=== PATIENT | male | born 1950 | race Caucasian/White ===

== ENCOUNTER 2019-10-16 23:29 | Emergency (ER) | payer MEDICARE ==
[~2019-10-16] VITALS: Ht 172.7 cm; Wt 95.3 kg
--- OUTSIDE RECORDS SUMMARY | ~2019-10-16 | XMS | Encounter Summary ---
Demographics + + + | Address | [address] | | | [place] [address] | + + + | Home Phone | | + + + | Preferred Language | Unknown | + + + | Marital Status | | + + + | Yazdanism Affiliation | Unknown | + + + | Race | Unknown | + + + | Ethnic Group | Unknown | + + + Author + + + | Author | [facility] | | | and [place] | + + + | Organization | [facility] | | | and [place] | + + + | Address | Unknown | + + + | Phone | Unavailable | + + + Support + + + + + | Name | Relationship | Address | Phone | + + + + + | Chula Roe | ECON | [address] | | | | | [place] | | | | | [address] | | + + + + + Care Team Providers + +------+ + | Care Sergeant Of Officers Name | Role | Phone | + +------+ + | Edin Gavin MD | PCP | | + +------+ + Encounter Details +--------+ + + + + | Date | Type | Department | Care Team | Description | +--------+ + + + + | 03/15/ | Anesthesia | [facility] | Jr Meza | | | 2019 | Event | [facility] | Jimbo, DO [address] | | | | | [address] [place] | [address] | | | | | [place] [address] | [place] [address] | | | | | [phone] | [phone] | | | | | | | | +--------+ + + + + Anesthesia Record + + + + + | Procedure Name | Responsible | Anesthesia Start | Anesthesia Stop Time | | | Anesthesiologist | Time | | + + + + + | [facility] | | | | | [facility] | | | | + + + + + + + | No events on file. | + + +------+ | Meds | +------+ + + + No medications | on file. | + + + + + | No agents on file. | + + + + | No blood administrations on file. | + + + + | No LDAs on file. | + + documented in this encounter Social History + +-------+ +--------+------+ | Tobacco Use | Types | Packs/Day | Years | Date | | | | | Used | | + +-------+ +--------+------+ | Never Smoker | | | | | + +-------+ +--------+------+ + +------+---+---+ | Smokeless Tobacco: | Chew | | | | Current User | | | | + +------+---+---+ + + | Comments: 1 can per month | + + + + +---------+ + | Alcohol Use | Drinks/Week | oz/Week | Comments | + + +---------+ + | Yes | | | 5/week | + + +---------+ + + + + | Sex Assigned at | Date Recorded | | | | + + + | Not on file | | + + + + + + + | Job Start Date | Occupation | Industry | + + + + | Not on file | Not on file | Not on file | + + + + + + + + | Travel History | Travel Start | Travel End | + + + + + + | No recent travel history available. | + + documented as of this encounter Plan of Treatment Not on filedocumented as of this encounter Visit Diagnoses Not on filedocumented in this encounter"
--- OUTSIDE RECORDS SUMMARY | ~2019-10-16 | XMS | Encounter Summary ---
Demographics + + + | Address | [address] | | | [place] [address] | + + + | Home Phone | | + + + | Preferred Language | Unknown | + + + | Marital Status | | + + + | Cheondoism Affiliation | Unknown | + + + | Race | Unknown | + + + | Ethnic Group | Unknown | + + + Author + + + | Author | [facility] | | | and [place] | + + + | Organization | [facility] | | | and [place] | + + + | Address | Unknown | + + + | Phone | Unavailable | + + + Support + + + + + | Name | Relationship | Address | Phone | + + + + + | Chula Roe | ECON | [address] | | | | | [place] | | | | | [address] | | + + + + + Care Team Providers + +------+ + | Care Lactation Specialist Name | Role | Phone | + +------+ + | Edin Gavin MD | PCP | | + +------+ + Encounter Details +--------+ + + + + | Date | Type | Department | Care Team | Description | +--------+ + + + + | 02/22/ | Hospital | [facility] | Eran Smith MD | | | 2019 | Encounter | MED CTR NUCLEAR | [address] | | | | | MEDICINE [address] | [place], [place] | | | | | [place], | [address] | | | | | [place] [address] | [phone] | | | | | [phone] | | | +--------+ + + + + Social History + +-------+ +--------+------+ | Tobacco Use | Types | Packs/Day | Years | Date | | | | | Used | | + +-------+ +--------+------+ | Never Assessed | | | | | + +-------+ +--------+------+ + + + | Sex Assigned at [...] Not on filedocumented as of this encounter Procedures + +--------+ + + + | Procedure Name | Priori | Date/Time | Associated Diagnosis | Comments | | | ty | | | | + +--------+ + + + | NM NUCLEAR STRESS | Routin | 02/22/2019 | Bundle branch | Results for this | | TEST (PHARMACOLOGIC | e | 10:47 AM | block, right | procedure are in the | | - VASODILATOR) | | PDT | Abnormal EKG | results section. | + +--------+ + + + documented in this encounter Visit Diagnoses Not on filedocumented in this encounter Administered Medications + +--------+ + +------+------+ | Medication Order | MAR | Action | Dose | Rate | Site | | | Action | Date | | | | + +--------+ + +------+------+ | technetium TC-99M sestamibi | Given | 02/23/20 | 33.6 | | | | (CARDIOLITE) injection 33.6 | | 19 10:46 | millicur | | | | millicurie 33.6 millicurie, | | AM PDT | ies | | | | Intravenous, ONCE NICK, Other, | | | | | | | Starting [facility] 02/22/19 at 1046, For | | | | | | | 1 dose, Nuclear Medicine | | | | | | + +--------+ + +------+------+ +---+---+ | | | +---+---+ documented in this encounter"
--- OUTSIDE RECORDS SUMMARY | ~2019-10-16 | XMS | Encounter Summary ---
Demographics + + + | Address | [address] | | | [place] [address] | + + + | Home Phone | | + + + | Preferred Language | Unknown | + + + | Marital Status | | + + + | Jainism Affiliation | Unknown | + + + | Race | Unknown | + + + | Ethnic Group | Unknown | + + + Author + + + | Author | [facility] | | | and [place] | + + + | Organization | [facility] | | | and [place] | + + + | Address | Unknown | + + + | Phone | Unavailable | + + + Support + + + + + | Name | Relationship | Address | Phone | + + + + + | Chula Roe | ECON | [address] | | | | | [place] | | | | | [address] | | + + + + + Care Team Providers + +------+ + | Care Brokerage Branch Manager Name | Role | Phone | + +------+ + | Edin Gavin MD | PCP | | + +------+ + Reason for Visit Auth/Cert +--------+--------+ + + + + | Status | Reason | Specialty | Diagnoses / | Referred By | Referred To | | | | | Procedures | Contact | Contact | +--------+--------+ + + + + | | | | Diagnoses | | | | | | | Primary | | | | | | | osteoarthrit | | | | | | | is of right | | | | | | | hip Primary | | | | | | | | | | | | | | osteoarthrit | | | | | | | is of right | | | | | | | hip [M16.11] | | | | | | | Procedures | | | | | | | [place] TOTAL | | | | | | | HIP | | | | | | | ARTHROPLASTY | | | | | | | Right | | | | | | | total hip | | | | | | | arthroplasty | | | +--------+--------+ + + + + Encounter Details +--------+ + + + + | Date | Type | Department | Care Team | Description | +--------+ + + + + | 03/14/ | Anesthesia | [facility] | Josiah Mckenzie, | | | 2019 | Event | MED CTR OR [facility] OP | MD [address] | | | | | [address] | [place] | | | | | [place] | [address] | | | | | [address] | | | | | | [phone] | [facility] | | | | | | MD Antonio [address] | | | | | | [address] [place] | | | | | | [place] [address] | | | | | | [phone] | | | | | | | | +--------+ + + + + Anesthesia Record + + + + + | Procedure Name | Responsible | Anesthesia Start | Anesthesia Stop Time | | | Anesthesiologist | Time | | + + + + + | Right total hip | Josiah Mckenzie MD | 03/14/19 1434 | 03/14/19 1634 | | arthroplasty (Right | | | | | Hip) | | | | + + + + + +----+---+ + + | Da | T | Event | Comment | | te | i | | | | | m | | | | | e | | | +----+---+ + + | 06 | 1 | | | | /1 | 4 | | | | 2/ | 2 | | | | 20 | 1 | | | | 19 | | | | +----+---+ + + | | 1 | An Checkout | Pre-use anesthesia machine/equipment checkout. | | | 4 | | | | | 2 | | | | | 1 | | | +----+---+ + + | | 1 | An Start | Reassessment prior to anesthesia induction/procedure. | | | 4 | | | | | 3 | | | | | 4 | | | +----+---+ + + | | 1 | An Start | | | | 4 | Data | | | | 3 | | | | | 4 | | | +----+---+ + + | | 1 | Epi/spinal | | | | 4 | Stop | | | | 4 | | | | | 1 | | | +----+---+ + + | | 1 | Preoxygenat | | | | 4 | ed | | | | 4 | | | | | 2 | | | +----+---+ + + | | 1 | An | | | | 4 | Induction | | | | 4 | | | | | 3 | | | +----+---+ + + | | 1 | An | | | | 4 | Intubation | | | | 4 | | | | | 5 | | | +----+---+ + + | | 1 | AN Bite | | | | 4 | Block | | | | 4 | | | | | 6 | | | +----+---+ + + | | 1 | Anesthesia | | | | 4 | Ready | | | | 4 | | | | | 6 | | | +----+---+ + + | | 1 | Antibiotic | | | | 4 | Given | | | | 5 | | | | | 3 | | | +----+---+ + + | | 1 | First | | | | 5 | Inc/Proc St | | | | 0 | | | | | 3 | | | +----+---+ + + | | 1 | Pre-Procedu | | | | 5 | ral Timeout | | | | 0 | Completed | | | | 3 | | | +----+---+ + + | | 1 | [place] | | | | 5 | 43-degrees | | | | 0 | | | | | 3 | | | +----+---+ + + | | 1 | Quick Note | HR from EKG inaccurate. Counting t-wave as QRS spike. Accurate HR | | | 5 | | from the SpO2. | | | 0 | | | | | 9 | | | +----+---+ + + | | 1 | [place] off | | | | 6 | | | | | 1 | | | | | 7 | | | +----+---+ + + | | 1 | Oropharynx | | | | 6 | Suctioned | | | | 2 | | | | | 6 | | | +----+---+ + + | | 1 | Extubation/ | | | | 6 | Airway LDA | | | | 2 | Removal | | | | 7 | | | +----+---+ + + | | 1 | an stop | | | | 6 | data | | | | 2 | | | | | 7 | | | +----+---+ + + | | 1 | An Stop | Patient handed off to recovery nurse. | | | 3 | | | | | 4 | | | +----+---+ + + +------+ | Meds | +------+ + + + | Name | Total | + + + | fentaNYL | 100 mcg | + + + | lidocaine 2% | 100 mg | + + + | propofol | 100 mg | + + + | rocuronium | 50 mg | + + + | ePHEDrine (AKOVAZ) injection 50 | 20 mg | | mg/mL | | + + + | ondansetron | 4 mg | + + + | dexamethasone (PF) injection 10 | 10 mg | | mg/mL | | + + + | ceFAZolin (ANCEF, KEFZOL) 100 | 2 g | | mg/mL IV syringe 2 g | | + + + | morphine (Intrathecal) | 150 mcg | + + + | bupivacaine 0.75% (Intrathecal) | 1 mL | + + + | neostigmine | 4 mg | + + + | glycopyrrolate (ROBINUL) | 0.6 mg | | injection (5 mL vial) | | + + + | tranexamic acid | 2,000 mg | + + + | lactated ringers (LR) infusion | 1,500 mL | + + + + + | Name | + + | N2O Flow Rate (L/Min) | + + | O2 Flow Rate (L/Min) | + + | Insp O2 | + + | Exp SEV | + + | Air Flow Rate (L/Min) | + + + + | No blood administrations on file. | + + +--------+ + + + | Type | Details | Placement | Removal | +--------+ + + + | Airway | Placement Date: 03/14/19; | 03/14/19 1445 by | 03/14/19 1627 by | | | Placement Time: 1445 (created via | Jr Choi | Josiah Mckenzie MD | | | procedure documentation); Mask | Ramboirr, DO | | | | Ventilation: EZ w/OA; Airway | | | | | Grade: 2b; External Maneuvers: | | | | | BURP; Successful Technique: Mac; | | | | | Laryngoscope Blade Size: 3; | | | | | Attempts: 1; Airway Type: | | | | | endotracheal; Size: 6.5; Airway | | | | | Tube Secured At: 23; Trauma: | | | | | none; Placement Check: exhaled | | | | | CO2 detection device, bilateral | | | | | chest rise, breath sounds equal | | | | | bilaterally; Removal Date: | | | | | 03/14/19; Removal Time: 1627 | | | +--------+ + + + | Urethr | 03/14/19; 1450; indicated due to | 03/14/19 1450 by | 03/15/19 0800 by | | al | specific surgical procedure; All | Patricia Salmeron RN | [facility] | | [place] | elements; All elements; All | | BARBY Vaughan | | er | elements; indwelling double lumen | | | | | catheter; 100% silicone; 16; | | | | | Urethral resistance; 1; 10; | | | | | drainage bag to dependent | | | | | drainage; urethral catheter | | | | | removed, per protocol/policy; | | | | | 03/15/19; 0800 | | | +--------+ + + + | Wound | 03/14/19; 1509; Incision; Right; | 03/14/19 1509 by | 03/15/19 1425 by | | | hip; Healing; 03/15/19; 1425 | Patricia Salmeron RN | [facility] | | | | | [facility] | +--------+ + + + | Periph | 03/14/19 (present on arrival to | 03/14/19 1657 by | 03/15/19 1425 by | | eral | PACU); 1657; Right; Anterior | Jim Sue RN | [facility] | | IV | (palmar); Forearm; | | BARBY Vaughan | | | alhv-iza-fpwsep catheter system; | | | | | 18 gauge, 1 1/2 in length; | | | | | removed inadvertently, no longer | | | | | indicated; 03/15/19; 1425 | | | +--------+ + + + documented in this encounter Social [...] | + +--------+ + + + | ANE EPIDURAL NOTE | Routin | 03/14/2019 | | Results for this | | | e | 2:59 PM | | procedure are in the | | | | PDT | | results section. | + +--------+ + + + | ANE AIRWAY NOTE | Routin | 03/14/2019 | | Results for this | | | e | 2:57 PM | | procedure are in the | | | | PDT | | results section. | + +--------+ + + + documented in this encounter Results Neuraxial (03/14/2019 2:59 PM PDT) + + + | Narrative | Performed At | + + + | Jr Meza DO 03/14/2019 15:00 Neuraxial Procedure | | | Note 03/14/2019 14:50 Procedure: single-shot spinal anesthesia | | | Provider requested procedure: Gryler Indication: postoperative | | | analgesia Preprocedure check: patient identified, procedure and | | | rescue equipment checked, risks/benefits discussed, preevaluation | | | including airway assessment complete, consent obtained, timeout | | | performed, monitors applied and reassessment prior to procedure | | | Patient position: sitting Preparation: chlorhexidine/isopropyl | | | alcohol, Introducer used: yes Procedure level: L3-4 Approach: | | | midline Needle: pencil-point LDA Gauge Size: 24g. Needle length: | | | 4.69 in Medication administered through: needle Negative findings: | | | no blood aspirated and no paresthesia Positive findings: CSF | | | aspirated Attempts: 1 Ease of procedure: easy Performing provider: | | | Jr Meza DO Please see anesthesia record or | | | flowsheet for vital sign documentation and see anesthesia record or | | | MAR for additional medication documentation. | | + + + + + | Procedure Note | + + | Jr Meza DO - 03/14/2019 2:59 PM PDT Neuraxial Procedure Note03/14/2019 | | 14:50Procedure: single-shot spinal anesthesiaProvider requested procedure: | | GrylerIndication: postoperative analgesiaPreprocedure check: patient identified, | | procedure and rescue equipment checked, risks/benefits discussed, preevaluation | | including airway assessment complete, consent obtained, timeout performed, monitors | | applied and reassessment prior to procedurePatient position: sittingPreparation: | | chlorhexidine/isopropyl alcohol, Introducer used: yesProcedure level: L3-4Approach: | | midlineNeedle: pencil-pointLDA Gauge Size: 24g.Needle length: 4.69 inMedication | | administered through: needleNegative findings: no blood aspirated and no | | paresthesiaPositive findings: CSF aspiratedAttempts: 1Ease of procedure: easyPerforming | | provider: Grayson Coker see anesthesia record or flowsheet for vital | | sign documentation and see anesthesia record or MAR for additional medication | | documentation. | |LDA Gauge Size: 24g. | |Needle length: 4.69 in | |Medication administered through: needle | |Negative findings: no blood aspirated and no paresthesia | |Positive findings: CSF aspirated | |Attempts: 1 | |Ease of procedure: easy | |Performing provider: rJ Meza DO | | | | | | | | | |Please see anesthesia record or flowsheet for vital sign documentation and see anesthesia r ecord or MAR for additional medication documentation. | + + Airway (03/14/2019 2:57 PM PDT) + + + | Narrative | Performed At | + + + | Jr Meza DO 03/14/2019 14:59 Anesthesia Airway | | | Placement 03/14/2019 14:45 Preprocedure check: patient identified, | | | suction, oxygen, airway equipment checked, airway assessed and | | | patient reassessment prior to induction Rapid Sequence Induction: no | | | Mask ventilation: easy with oral airway External maneuver: BURP | | | Successful technique: Mac Laryngoscope blade size: 3 Airway | | | grade: 2b (Only posterior extremity of glottis seen or only | | | arytenoid cartilages) Attempts: 1 Airway type: endotracheal Size: | | | 6.5 Cuffed: cuffed Route, reference point: right side of mouth Tube | | | depth: 23 cm Tube secured with: adhesive tape Trauma: none Tube | | | placement verification: bilateral chest rise, equal bilateral breath | | | sounds and carbon dioxide detection Performing provider: Jr | | | Jimbo Meza DO Please see intraoperative grid for any | | | additional medication documentation. | | + + + + + | Procedure Note | + + | Jr Meza DO - 03/14/2019 2:57 PM PDT Anesthesia Airway | | Placement03/14/2019 14:45Preprocedure check: patient identified, suction, oxygen, airway | | equipment checked, airway assessed and patient reassessment prior to inductionRapid | | Sequence Induction: noMask ventilation: easy with oral airwayExternal maneuver: | | BURPSuccessful technique: MacLaryngoscope blade size: 3 Airway grade: 2b (Only | | posterior extremity of glottis seen or only arytenoid cartilages)Attempts: 1Airway type: | | endotrachealSize: 6.5Cuffed: cuffedRoute, reference point: right side of mouthTube | | depth: 23 cmTube secured with: adhesive tapeTrauma: noneTube placement verification: | | bilateral chest rise, equal bilateral breath sounds and carbon dioxide | | detectionPerforming provider: Grayson Coker see intraoperative grid for | | any additional medication documentation. | |Airway type: endotracheal | |Size: 6.5 | |Cuffed: cuffed | |Route, reference point: right side of mouth | |Tube depth: 23 cm | |Tube secured with: adhesive tape | |Trauma: none | |Tube placement verification: bilateral chest rise, equal bilateral breath sounds and carbon dioxide detection | |Performing provider: Jr Meza DO | | | | | | | |Please see intraoperative grid for any additional medication documentation. | + + documented in this encounter Visit Diagnoses Not on filedocumented in this encounter Administered Medications + +--------+ +------+------+------+ | Medication Order | MAR | Action | Dose | Rate | Site | | | Action | Date | | | | + +--------+ +------+------+------+ | bupivacaine 0.75%-dextrose | Given | 03/14/20 | 1 mL | | | | 8.25% (MARCAINE SPINAL) injection | | 19 2:41 | | | | | INTRATHECAL, PRN, Starting Wed | | PM PDT | | | | | 03/14/19 at 1441, Anesthesia | | | | | | | Intra-op | | | | | | + +--------+ +------+------+------+ +---+---+ | | | +---+---+ + +-------+ +-----+---+---+ | ceFAZolin (ANCEF, KEFZOL) 100 | Given | 03/14/20 | 2 g | | | | mg/mL IV syringe 2 g 2 g, | | 19 2:53 | | | | | Intravenous, Administer over 30 | | PM PDT | | | | | Minutes, Prior to Incision, | | | | | | | Starting 03/14/19 at 1436, For | | | | | | | 1 dose, Pre-op, Indications: | | | | | | | Surgical Prophylaxis | | | | | | + +-------+ +-----+---+---+ +---+---+ | | | +---+---+ + +-------+ +-------+---+---+ | dexamethasone (PF) 10 mg/mL | Given | 03/14/20 | 10 mg | | | | injection Intravenous, PRN, | | 19 2:53 | | | | | Starting 03/14/19 at 1453, | | PM PDT | | | | | Anesthesia Intra-op | | | | | | + +-------+ +-------+---+---+ +---+---+ | | | +---+---+ + +-------+ +-------+---+---+ | ePHEDrine (AKOVAZ) 50 mg/mL | Given | 03/14/20 | 10 mg | | | | injection Intravenous, PRN, | | 19 3:18 | | | | | Starting 03/14/19 at 1458, | | PM PDT | | | | | Anesthesia Intra-op | | | | | | + +-------+ +-------+---+---+ +-------+ +-------+---+---+ | Given | 03/14/20 | 10 mg | | | | | 19 2:58 | | | | | | PM PDT | | | | +-------+ +-------+---+---+ +---+---+ | | | +---+---+ + +-------+ +---------+---+---+ | fentaNYL (PF) injection | Given | 03/14/20 | 100 mcg | | | | Intravenous, PRN, Starting Wed | | 19 2:43 | | | | | 03/14/19 at 1443, Anesthesia | | PM PDT | | | | | Intra-op | | | | | | + +-------+ +---------+---+---+ +---+---+ | | | +---+---+ + +-------+ +--------+---+---+ | glycopyrrolate (LUL) | Given | 03/14/20 | 0.6 mg | | | | injection Intravenous, PRN, | | 19 4:14 | | | | | Starting 03/14/19 at 1614, | | PM PDT | | | | | Anesthesia Intra-op | | | | | | + +-------+ +--------+---+---+ +---+---+ | | | +---+---+ + +-------+ +--------+---+---+ | lidocaine (PF) 2% injection | Given | 03/14/20 | 100 mg | | | | Intravenous, PRN, Starting Tue | | 19 2:43 | | | | | 03/14/19 at 1443, Anesthesia | | PM PDT | | | | | Intra-op | | | | | | + +-------+ +--------+---+---+ +---+---+ | | | +---+---+ + +-------+ +---------+---+---+ | morphine (PF) (DURAMORPH) 0.5 | Given | 03/14/20 | 150 mcg | | | | mg/mL injection INTRATHECAL, | | 19 2:41 | | | | | PRN, Starting 03/14/19 at | | PM PDT | | | | | 1441, Anesthesia Intra-op | | | | | | + +-------+ +---------+---+---+ +---+---+ | | | +---+---+ + +-------+ +------+---+---+ | neostigmine (BLOXIVERZ) 1 mg/mL | Given | 03/14/20 | 4 mg | | | | injection Intravenous, PRN, | | 19 4:14 | | | | | Starting 03/14/19 at 1614, | | PM PDT | | | | | Anesthesia Intra-op | | | | | | + +-------+ +------+---+---+ +---+---+ | | | +---+---+ + +-------+ +------+---+---+ | ondansetron (ZOFRAN) injection | Given | 03/14/20 | 4 mg | | | | Intravenous, PRN, Starting Wed | | 19 4:14 | | | | | 03/14/19 at 1614, Anesthesia | | PM PDT | | | | | Intra-op | | | | | | + +-------+ +------+---+---+ +---+---+ | | | +---+---+ + +-------+ +--------+---+---+ | propofol (DIPRIVAN) injection | Given | 03/14/20 | 100 mg | | | | Intravenous, PRN, Starting Wed | | 19 2:43 | | | | | 03/14/19 at 1443, Anesthesia | | PM PDT | | | | | Intra-op | | | | | | + +-------+ +--------+---+---+ +---+---+ | | | +---+---+ + +-------+ +-------+---+---+ | rocuronium (ZEMURON) injection | Given | 03/14/20 | 50 mg | | | | Intravenous, PRN, Starting Wed | | 19 2:43 | | | | | 03/14/19 at 1443, Anesthesia | | PM PDT | | | | | Intra-op | | | | | | + +-------+ +-------+---+---+ +---+---+ | | | +---+---+ + +-------+ + +---+---+ | tranexamic acid (CYKLOKAPRON) | Given | 03/14/20 | 1,000 mg | | | | injection Intravenous, | | 19 4:17 | | | | | Administer over 15 Minutes, PRN, | | PM PDT | | | | | Starting 03/14/19 at 1617, | | | | | | | Anesthesia Intra-op | | | | | | + +-------+ + +---+---+ +-------+ + +---+---+ | Given | 03/14/20 | 1,000 mg | | | | | 19 2:53 | | | | | | PM PDT | | | | +-------+ + +---+---+ +---+---+ | | | +---+---+ documented in this encounter"
--- OUTSIDE RECORDS SUMMARY | ~2019-10-16 | XMS | Clinical Summary ---
Demographics + + + | Address | [address] | | | [place] [address] | + + + | Home Phone | | + + + | Preferred Language | Unknown | + + + | Marital Status | | + + + | Anabaptist Affiliation | Unknown | + + + | Race | White | + + + | Ethnic Group | Other Race | + + + Author + + + | Author | [facility] Dermatology [facility] | + + + | Organization | [facility] | + + + | Address | Unknown | + + + | Phone | Unavailable | + + + Care Team Providers + +------+ + | Care Senior Media Planner Name | Role | Phone | + +------+ + PCP | Unavailable | + +------+ + Source Comments [facility] is fully live on both [facility] and [facility] In[facility] Allergies Not on File Medications Not on file Active Problems Not on file Social History + +-------+ +--------+------+ | Tobacco [...] recent travel history available. | + + Last Filed Vital Signs Not on file Plan of Treatment Not on file Results Not on filefrom Last 3 Months Insurance + +--------+ +--------+-------+---------+--------+ | Payer | Benefi | Subscriber | Effect | Phone | Address | Type | | | t Plan | ID | zoey | | | | | | / | | Dates | | | | | | Group | | | | | | + +--------+ +--------+-------+---------+--------+ | COMMERCIAL GROUP | COMMER | xxxxxxxxxxx | Effect | | | Indemn | | | CIAL | | zoey | | | ity | | | GROUP | | for | | | | | | | | all | | | | | | | | dates | | | | + +--------+ +--------+-------+---------+--------+ + +--------+ +--------+ + + | Guarantor Name | Accoun | Relation to | Date | Phone | Billing Address | | | t Type | Patient | of | | | | | | | | | | + +--------+ +--------+ + + | Edmar Roe | Person | Self | [birth year] | [address] | | | al/Fam | | 1950 | [phone] | [address] [place] | | | [place] | | | [address] (Home) | [address] | + +--------+ +--------+ + +"
--- OUTSIDE RECORDS SUMMARY | ~2019-10-16 | XMS | Encounter Summary ---
Demographics + + + | Address | [address] | | | [place] [address] | + + + | Home Phone | | + + + | Preferred Language | Unknown | + + + | Marital Status | | + + + | Faith Affiliation | Unknown | + + + | Race | White | + + + | Ethnic Group | Other Race | + + + Author + + + | Author | [facility] | + + + | Organization | [facility] | + + + | Address | Unknown | + + + | Phone | Unavailable | + + + Care Team Providers + +------+ + | Care Cyanide Pot Hardener Name | Role | Phone | + +------+ + PCP | Unavailable | + +------+ + Encounter Details +--------+ + + + + | Date | Type | Department | Care Team | Description | +--------+ + + + + | 09/24/ | Hospital | Dermatopathology | | | | 2013 | Encounter | [address] | | | | | | Mailcode: [id number] | | | | | | [facility] | | | | | | and Healing, | | | | | | Building [address], [address] | | | | | | Floor [place], [place] | | | | | | [address] | | | | | | [phone] | | | +--------+ + + + [...] | + +--------+ + + + | DERM PATHOLOGY | Routin | 12/06/2014 | | Results for this | | | e | | | procedure are in the | | | | | | results section. | + +--------+ + + + | DERM PATHOLOGY | Routin | 09/24/2014 | | Results for this | | | e | | | procedure are in the | | | | | | results section. | + +--------+ + + + documented in this encounter Results DERM PATHOLOGY (12/06/2014) + + + + + + | Component | Value | Ref Range | Performed | Pathologist | | | | | At | Signature | + + + + + + | DERMATOPATH | SOURCE OF SPECIMEN:A Lt. | | [facility] | | | OLOGY(WET | shoulder, excision | | DERMATOPATH | | | MNT) | CLINICAL | | OLOGY | | | | DESCRIPTION:Exc. | | | | | | melanocytic nevus with | | | | | | atypical features; | | | | | | suture proximal tip; | | | | | | margincheck please. | | | | | | GROSS | | | | | | DESCRIPTION:Received in | | | | | | formalin is a specimen | | | | | | labeled Jyothi, | | | | | | Edmar:A: Specimen is | | | | | | labeled "Lt shoulder" | | | | | | and consists of an | | | | | | ellipse of heredia-pinkskin, | | | | | | [id number]. The specimen | | | | | | is oriented by a suture | | | | | | at one apex, which | | | | | | isdesignated as proximal | | | | | | tip. With the suture | | | | | | in the 12:00 position, | | | | | | thespecimen is inked | | | | | | blue from | | | | | | 12:00-3:00-6:00 and | | | | | | black from | | | | | | 6:00-9:00-12:00.The | | | | | | tissue is serially | | | | | | sectioned from 12:00 to | | | | | | 6:00 and | | | | | | submittedrespectively in | | | | | | cassettes A1 | | | | | | | | | | | | A2. MICROSCOPIC | | | | | | DESCRIPTION:There are an | | | | | | increased number of | | | | | | collagen bundles with | | | | | | fibrocytes | | | | | | arrangedparallel to the | | | | | | skin surface with | | | | | | vertically oriented | | | | | | blood vessels. | | | | | | DIAGNOSIS:SCAR. | | | | | | NOTE: There is no | | | | | | evidence of residual | | | | | | nevus in these sections. | | | | | | KPW:12/10/14 | | | | | | My electronic | | | | | | signature indicates that | | | | | | I have personally | | | | | | reviewed alldiagnostic | | | | | | slides, the gross and/or | | | | | | microscopic portion of | | | | | | thisreport and | | | | | | formulated the final | | | | | | diagnosis. | | | | | | Rendering Diagnostician: | | | | | | Edin Carlson | | | | | | YumiPathologistEsteri | | | | | | [place] Signed 12/10/2014 | | | | | | 5:03PM | | | | + + + + + + + + | Specimen | + + | | + + + + + + + | Performing | Address | City/State/Zipcode | Phone Number | | Organization | | | | + + + + + | [facility] | [facility] | [place] [address] | | | DERMATOPATHOLOGY | [address] | | | + + + + + DERM PATHOLOGY (09/24/2014) + + + + + + | Component | Value | Ref Range | Performed | Pathologist | | | | | At | Signature | + + + + + + | DERMATOPATH | SOURCE OF SPECIMEN:A Lt | | [facility] | | | OLOGY(WET | shoulder, shave biopsy | | DERMATOPATH | | | MNT) | CLINICAL | | OLOGY | | | | DESCRIPTION:Irregularly | | | | | | shaped & pigmented | | | | | | macule for unknown time. | | | | | | Melanocytic nevus;r/o | | | | | | melanoma. GROSS | | | | | | DESCRIPTION:Received in | | | | | | formalin is a specimen | | | | | | labeled Jyothi | | | | | | Edmar:A: Specimen is | | | | | | labeled "Lt shoulder" | | | | | | and consists of an | | | | | | irregular shave ofbrown | | | | | | skin, [id number]. The | | | | | | surgical margin is inked | | | | | | black; the tissue | | | | | | isserially sectioned, | | | | | | and entirely submitted | | | | | | in cassette A1. | | | | | | MICROSCOPIC | | | | | | DESCRIPTION:There is a | | | | | | broad, not entirely | | | | | | well-circumscribed, | | | | | | compound | | | | | | melanocyticneoplasm | | | | | | characterized by nests | | | | | | and an increase in | | | | | | single | | | | | | melanocytesdistributed | | | | | | somewhat irregularly | | | | | | along the basal layer, | | | | | | with some | | | | | | scatteredsingle | | | | | | melanocytes extending in | | | | | | foci above it | | | | | | (highlighted with a | | | | | | Melan-Aimmunoperoxidase | | | | | | study). There are nests | | | | | | in the upper dermis | | | | | | amidst asparse | | | | | | lymphocytic infiltrate. | | | | | | Most of the melanocytic | | | | | | nuclei are round tooval, | | | | | | a few are | | | | | | hyperchromatic, and the | | | | | | cells contain | | | | | | amphophiliccytoplasm, | | | | | | some with melanin. 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 | | | | | | Asymmetry | | | | | | with increased single | | | | | | junctional melanocytes | | | | | | and focalintraspinous | | | | | | involvement are | | | | | | significantly atypical | | | | | | features which, whilenot | | | | | | completely diagnostic, | | | | | | are suspicious. The | | | | | | lesion extends close to | | | | | | theperipheral biopsy | | | | | | margin, and an excision | | | | | | which assures complete | | | | | | removal isrecommended. | | | | | | My electronic | | | | | | signature indicates that | | | | | | I have personally | | | | | | reviewed alldiagnostic | | | | | | slides, the gross and/or | | | | | | microscopic portion of | | | | | | thisreport and | | | | | | formulated the final | | | | | | diagnosis. | | | | | | Rendering Diagnostician: | | | | | | Liseth Taylor | | | | | | Rene | | | | | | MDPathologistElectronica | | | | | | lly Signed 09/30/2014 | | | | | | 2:24PM | | | | + + + + + + + + | Specimen | + + | | + + + + + + + | Performing | Address | City/State/Zipcode | Phone Number | | Organization | | | | + + + + + | [facility] | [address] | [place] [address] | | | DERMATOPATHOLOGY | [address] | | | + + + + + documented in this encounter Visit Diagnoses Not on filedocumented in this encounter
--- OUTSIDE RECORDS SUMMARY | ~2019-10-16 | XMS | Encounter Summary ---
Demographics + + + | Address | [address] | | | [place] [address] | + + + | Home Phone | | + + + | Preferred Language | Unknown | + + + | Marital Status | | + + + | Gnosticist Affiliation | Unknown | + + + | Race | White | + + + | Ethnic Group | Other Race | + + + Author + + + | Author | [facility] | + + + | Organization | [facility] | + + + | Address | Unknown | + + + | Phone | Unavailable | + + + Care Team Providers + +------+ + | Care Clinical Rehabilitation Coordinator Name | Role | Phone | + +------+ + PCP | Unavailable | + +------+ + Encounter Details +--------+ + + + + | Date | Type | Department | Care Team | Description | +--------+ + + + + | 12/06/ | Hospital | Registration [facility] | | | | 2015 | Encounter | [address] | | | | | | [place], | | | | | | [place] [address] | | | +--------+ + + + [...]
--- OUTSIDE RECORDS SUMMARY | ~2019-10-16 | XMS | Clinical Summary ---
Demographics + + + | Address | [address] | | | [place] [address] | + + + | Home Phone | | + + + | Preferred Language | Unknown | + + + | Marital Status | | + + + | Yazidi Affiliation | Unknown | + + + | Race | Unknown | + + + | Ethnic Group | Unknown | + + + Author + + + | Author | [facility] | | | and [place] | + + + | Organization | [facility] | | | and [place] | + + + | Address | Unknown | + + + | Phone | Unavailable | + + + Support + + + + + | Name | Relationship | Address | Phone | + + + + + | Chula Roe | ECON | [address] | | | | | [place] | | | | | [address] | | + + + + + Care Team Providers + +------+ + | Care Pourer Crane Ladle Name | Role | Phone | + +------+ + | Edin Gavin MD | PCP | | + +------+ + Allergies No Known Allergies Medications + + + +---------+------+------+-------+ | Medication | Sig | Dispensed | Refills | Star | End | Statu | | | | | | t | Date | s | | | | | | Date | | | + + + +---------+------+------+-------+ | allopurinol | Take 300 mg by mouth | | 0 | | | Activ | | (ZYLOPRIM) 300 mg | Daily. | | | | | e | | tablet | | | | | | | + + + +---------+------+------+-------+ | atenolol | Take 50 mg by mouth | | 0 | | | Activ | | (TENORMIN) 50 mg | Daily. | | | | | e | | tablet | | | | | | | + + + +---------+------+------+-------+ | diphenhydrAMINE | Take 25 mg by mouth | | 0 | | | Activ | | (BENADRYL) 25 mg | every 6 hours as | | | | | e | | tablet | needed for Itching. | | | | | | + + + +---------+------+------+-------+ | glimepiride | Take 8 mg by mouth | | 0 | | | Activ | | (AMARYL) 4 mg tablet | every morning | | | | | e | | | (before breakfast). | | | | | | + + + +---------+------+------+-------+ | SITagliptin | Take 100 mg by mouth | | 0 | | | Activ | | (JANUVIA) 100 mg | Daily. | | | | | e | | tablet | | | | | | | + + + +---------+------+------+-------+ | empagliflozin | Take 25 mg by mouth | | 0 | | | Activ | | (JARDIANCE) 25 mg | Daily. | | | | | e | | tablet | | | | | | | + + + +---------+------+------+-------+ | metFORMIN | Take 500 mg by mouth | | 0 | | | Activ | | (GLUCOPHAGE) 500 mg | 3 times daily. | | | | | e | | tablet | | | | | | | + + + +---------+------+------+-------+ | acetaminophen | Take 1-2 tablets by | 60 | 0 | 06/1 | | Activ | | (TYLENOL) 500 mg | mouth every 6 hours | tablet | | 3/20 | | e | | tablet | as needed for Pain. | | | 19 | | | + + + +---------+------+------+-------+ | oxyCODONE | Take 1-2 tablets by | 30 | 0 | 06/1 | | Activ | | (ROXICODONE) 5 mg | mouth every 6 hours | tablet | | 3/20 | | e | | tablet | as needed for Pain. | | | 19 | | | + + + +---------+------+------+-------+ Active Problems + + + | Problem | Noted Date | + + + | Diabetes mellitus type II, ORAL Control | 03/14/2019 | + + + + + | Overview: See A1c History | | No results found for: HBA1C | + + + + + | Hypertension | 03/14/2019 | + + + | Gout | 03/14/2019 | + + + | Primary osteoarthritis of right hip | 03/14/2019 | + + + | Benign localized prostatic hyperplasia with lower urinary tract | | | symptoms (LUTS) | | + + + | H/O Concussion | | + + + + + | Overview: Concussion with < 1 hr loss of consciousness | + + + +---+ | Chews tobacco | | + +---+ | Right bundle branch block (RBBB) | | + +---+ + + | Overview: RBBB with 1st Degree AV Block | + + + +---+ | Beta Blockers - Daily Use | | + +---+ Social History + +-------+ +--------+------+ | Tobacco [...] | + + Last Filed Vital Signs + + + + + | Vital Sign | Reading | Time Taken | Comments | + + + + + | Blood Pressure | 122/64 | 03/15/2019 11:36 AM | | | | | PDT | | + + + + + | Pulse | 70 | 03/15/2019 2:20 PM | | | | | PDT | | + + + + + | Temperature | 36.4 C (97.5 F) | 03/15/2019 11:36 AM | | | | | PDT | | + + + + + | Respiratory Rate | 16 | 03/15/2019 11:36 AM | | | | | PDT | | + + + + + | Oxygen Saturation | 95% | 03/15/2019 2:20 PM | | | | | PDT | | + + + + + | Inhaled Oxygen | - | - | | | Concentration | | | | + + + + + | Weight | 97.3 kg (214 lb 8.1 | 03/14/2019 12:22 PM | | | | oz) | PDT | | + + + + + | Height | 172.7 cm (5' 8") | 03/14/2019 12:22 PM | | | | | PDT | | + + + + + | Body Mass Index | 32.62 | 03/14/2019 12:22 PM | | | | | PDT | | + + + + + Plan of Treatment + + + + + | Health Maintenance | Due Date | Last Done | Comments | + + + + + | Hepatitis C | | | | | Screening | 0 | | | + + + + + | Vaccine: | | | | | Dtap/Tdap/Td (1 - | 1 | | | | Tdap) | | | | + + + + + | Diabetic Eye Exam | | | | | | 8 | | | + + + + + | Diabetic Foot Exam | | | | | | 8 | | | + + + + + | Hemoglobin A1c | | | | | Screening | 8 | | | + + + + + | Colorectal Cancer | | | | | Screening | 0 | | | | (Colonoscopy) | | | | + + + + + | Vaccine: Zoster (2 | | 04/09/2014 | | | of 3) | 4 | | | + + + + + | Vaccine: | | | | | Pneumococcal 65+ (1 | 5 | | | | of 2 - PCV13) | | | | + + + + + | Adult Annual | | | | | Wellness Visit | 9 | | | + + + + + | Microalbumin | | | | | Screening | 9 | | | + + + + + | Statin Therapy | | | | | (optimal intensity) | 9 | | | + + + + + | Vaccine: Influenza | | 06/02/2017, 10/11/2014, | | | (#1) | 9 | 10/21/2009 | | + + + + + Implants + +--------+------+ +--------+--------+--------+ | Implanted | Type | Area | Manufacture | Device | Shelf | Model | | | | | r | | Expira | / | | | | | | Identi | tion | Serial | | | | | | fier | Date | / Lot | + +--------+------+ +--------+--------+--------+ | Shell Acet Pps [id number] Ltd - | Erikai | | FOSTER - | | 10/16/ | [id number] | | [id number]: Qty: 1 | c | | ZIMM | | 2028 | 664 / | | on 03/14/2019 by Eran Smith | | | | | | /[id number] | | MD Zaynab at [facility] | | | | | | 01 | | [facility] | | | | | | | + +--------+------+ +--------+--------+--------+ | Imp Hip Lnr Arcmxl 36 F G7 | Generi | | FOSTER - | | 12/06/ | [id number] | | Tracy - [id number]: | c | | ZIMM | | 4 | 741 / | | Qty: 1 on 03/14/2019 by | | | | | | /[id number] | | Eran Smith MD at [facility] | | | | | | 25 | | [facility] | | | | | | | | [facility] | | | | | | | + +--------+------+ +--------+--------+--------+ | Imp Hip Stem Hi Off Tprlc | Generi | | FOSTER - | | 11/04/ | 51-104 | | 15mm - [id number]: | c | | ZIMM | | 2025 | 150 / | | Qty: 1 on 03/14/2019 by | | | | | | /[id number] | | Eran Smith MD at [facility] | | | | | | 24 | | [facility] | | | | | | | | [facility] | | | | | | | + +--------+------+ +--------+--------+--------+ | Imp Hip Fem Hd Cocr 36mm Neg | Generi | | FOSTER - | | 01/01/ | 11-363 | | 3 - [id number]: Qty: | c | | ZIMM | | 9 | 661 / | | 1 on 03/14/2019 by Luis, | | | | | | /[id number] | | Eran Worthy MD at [facility] | | | | | | 0 | | [facility] | | | | | | | + +--------+------+ +--------+--------+--------+ | Screw Bone Trilogy 6.5x35mm - | Screw | | FOSTER - | | 11/30/ | 00-625 | | [id number]: Qty: 1 | | | ZIMM | | 2029 | 0-065- | | on 03/14/2019 by Eran Smith | | | | | | 35 / | | MD Zaynab at [facility] | | | | | | /[id number] | | [facility] | | | | | | 65 | + +--------+------+ +--------+--------+--------+ Results Not on filefrom Last 3 Months Insurance + +--------+ +--------+ +---------+--------+ | Payer | Benefi | Subscriber | Effect | Phone | Address | Type | | | t Plan | ID | zoey | | | | | | / | | Dates | | | | | | Group | | | | | | + +--------+ +--------+ +---------+--------+ | MEDICARE | MEDICA | [id number] | | [phone] | | Medica | | | RE | | 015-Pr | 5 | | re | | | PART A | | esent | | | | | | AND B | | | | | | + +--------+ +--------+ +---------+--------+ | AARP | AARP | [id number] | 10/03/19 | [phone] | | Indemn | | | MDCR | | 19-Pre | 0 | | ity | | | SUPPL | | sent | | | | + +--------+ +--------+ +---------+--------+ + +--------+ +--------+ + + | Guarantor Name | Accoun | Relation to | Date | Phone | Billing Address | | | t Type | Patient | of | | | | | | | | | | + +--------+ +--------+ + + | Edmar Roe | Person | Self [birth year] | [address] | | | al/Fam | | 1950 | [phone] | [place] | | | [place] | | | [address] (Home) | [place] [address] | + +--------+ +--------+ + + Advance Directives + + + + + | Type | Date Recorded | Patient | Explanation | | | | Cable Reeler | | + + + + + | Power of | | | | | Forming Process Line Worker | | | | + + + + + | Advance | 03/14/2019 11:20 | | | | Directive | AM | | | + + + + + + + + + + | Code Status | Date | Date | Comments | | | Activated | Inactivated | | + + + + + | Full Code | 03/14/2019 | 03/15/2019 | | | | 5:28 PM | 6:49 PM | | + + + + +
--- OUTSIDE RECORDS SUMMARY | ~2019-10-16 | XMS | Encounter Summary ---
Demographics + + + | Address | [address] | | | [place] [address] | + + + | Home Phone | | + + + | Preferred Language | Unknown | + + + | Marital Status | | + + + | Jewish Affiliation | Unknown | + + + | Race | Unknown | + + + | Ethnic Group | Unknown | + + + Author + + + | Author | [facility] | | | and [place] | + + + | Organization | [facility] | | | and [place] | + + + | Address | Unknown | + + + | Phone | Unavailable | + + + Support + + + + + | Name | Relationship | Address | Phone | + + + + + | Chula Roe | ECON | [address] | | | | | [place] | | | | | [address] | | + + + + + Care Team Providers + +------+ + | Care Art History Instructor Name | Role | Phone | + [...] | | | | | | | CA TOTAL | | | | | | | HIP | | | | | | | ARTHROPLASTY | | | | | | | Right | | | | | | | total hip | | | | | | | arthroplasty | | | +--------+--------+ + + + + Encounter Details +--------+---------+ + + + | Date | Type | Department | Care Team | Description | +--------+---------+ + + + | 03/14/ | Surgery | [facility] | Eran Smith MD | Right total hip | | 2019 | | [facility] | [address] | arthroplasty | | | | [address] | [place] | | | | | [place] | [address] | | | | | [address] | [phone] | | | | | [phone] | | | +--------+---------+ + + + Social History + +-------+ [...] + + documented as of this encounter Last Filed Vital Signs + + + [...] + + + documented in this encounter Discharge Instructions Instructions Juan Jimenez, [facility] - 03/13/2019Formatting of this note might be different fro m the original. Your post op appointment is scheduled for 03/22 at 10:00 am. Please check in at 9: 30 am for X-rays at the [facility]. Discharge Instructions for Hip Replacement Surgery You had a hip replacement surgery. This means your natural hip was replaced with an artific ial joint (prosthesis). You may be recovering at home or in a rehabilitation facility. Eithe r way, you must take care of your new hip. Do this by moving and sitting the way you were ta ug in the hospital. Also, be sure to see your doctor for follow-up visits, and return to a ctivity slowly. Because a total hip replacement is major surgery, it will be a few months be fore you can move comfortably. Home Care Take your medications exactly as directed on the separate Medication Reconciliation juan luis andrea. Typically, you will resume your routine medications and in addition will take aspirin 32 5mg twice daily for FOUR weeks to prevent blood clots and a pain pill. Please purchase the 325 mg aspirin at your pharmacy, preferable enteric coated (EC) and take with food. Do not take ani-inflammatories (NSAIDs) while on this high dose aspirin, it increases your risk of bleeding and stomach upset. This includes ibuprofen, motrin, aleve, naproxen, advil and ba by (81mg) aspirin. You may resume those as needed after you have finished the four weeks of high dose aspirin. Tylenol (acetaminophen) and your pain pill are safe to take. Don t drive until your doctor says it s okay. And never drivewhile taking narcotic pain medication. Wear the support stockings you were given in the hospital. Wear them for 6 weeks post-op eratively To relieve discomfort at night, get up and move around as needed Incision Care A waterproof (Aquacel) dressing has been applied. It is OK to shower with this in place. NO tub soaks. Leave this Aquacel dressing in place until your first post-op visit unless it becomes wet or visibly soiled. Avoid infection by washing your hands often. If an infection occurs, it will need to be treated immediately. So call your doctorright awayif you think you may have an infection . Symptoms include a fever or an incision that leaks white, green, or yellow fluid. Avoid soaking yourincision in water (no hot tubs, bathtubs, swimming pools) until your doctor says it s okay. Sitting and Sleeping It is ok to sleep on your side, just remember to place a pillow between your knees Moving Safely Use a walker for 4 weeks. And remember to ask for help from others when you need it. Follow the posterior hip precautions You may put as much weight as is comfortable on the affected leg unless you have been to ld otherwise. Walk often and do theprescribed exercises as instructed. Arrange your household to keep the items you need within reach. Remove electrical cords, throw rugs, and anything else that may cause you to fall. Use nonslip bath mats, grab bars, an elevated toilet seat, and a shower chair in your ba throom. Follow-Up Make sure you keep the follow-up appointment scheduled about 10 days from your surgery loni e. You may confirm the appointment date and time by calling [phone] extension [phone] When to Seek Medical Attention Call 911 right awayif you have any of the following: Chest pain Shortness of breath Otherwise, call your doctor immediately if you have any of the following: Increased hip pain Pain or swelling in your calf or leg Fever .4For shaking chills Excessive swelling, increased drainage or redness around the incision Swelling, tenderness, or cramps in your leg [facility] Patient Opioid Handout for Acute or Perioperative Pain Opioid analgesics should only be taken as directed since misuse or diversion of these produ cts can be illegal, extremely harmful and even deadly. Prescription Opioids (such as hydro codone, oxycodone, hydromorphone, MS contin) are strong prescription pain medications and ar e often necessary following surgery. They can be an important part of treatment, but also c ome with serious risks. Anyone taking an opioid is vulnerable to the following risks. Major Risks: Addiction, Overdose and . Other Serious Risks & Side Effects include: ? Constipation, Nausea, Vomiting, Dry Mouth, Itching, Sweating, Sleepiness, Dizziness, Conf usion, Depression, as well as Low Testosterone resulting in low sex drive, energy and streng th. ? Tolerance meaning you need more of the medication for the same relief but also have h igher side effects ? Physical dependence withdrawal symptoms occur when the medication is stopped diff erent from addiction You are at a higher risk if ANY of the following apply to you: Sleep apnea, Age > 65, , Mental health problems including Anxiety & Depression, &a mp; History of Misuse. Certain medications also increase your risks of overdose and , including benzodiazepin es, muscle relaxers, & hypnotics. Avoid these when possible. If you think you may be on on e of these medications, talk with your pharmacist when filling your pain prescription. Aman chan go to the same pharmacy when possible. Opioid Instructions: ? Do not drink alcohol while taking opioids ? Do not drive while taking opioids ? Do not take opioids in greater amounts or more often than prescribed ? Do not take unless truly needed As your pain improves, consider alternative modalities including: Over the counter medicati ons as advised by your provider, ice and/or heat as appropriate, Cognitive Behavior Therapy, Massage Therapy, Physical Therapy, & other disciplines. Overdose: occurs when too much of the drug overwhelms the brain's drive to breathe. Recognize the signs and symptoms: small pinpoint pupils, overly sleepy or difficult t o arouse from sleep, slow and shallow breathing, choking or gurgling sounds, limpness, pale blue or cold skin. Should any of these occur, call 911 for immediate assistance. Lay the person on their side to prevent choking. Stay with the person until help arrives. If the person is sleepy, but arouses easily and communicates clearly, immediately discontinue the medication and call th e prescribing provider to discuss a change in medication, dose and/or frequency. Continue t o monitor for worsening symptoms. If you think you're struggling with addiction call our office and [facility]'s [facility] ne at [phone]. Secure Storage Prescriptions should be stored out of reach of children and pets, in a safe place, preferab ly locked to prevent other family members and visitors from taking them. If opioids are i ngested by others for whom they are not prescribed, these individuals might experience overd ose at the same dose or even at a lower dosage than what was prescribed for the patient. Do not share or sell prescribed medications. Resources for proper disposal of unused opioids: Returns: The preferred option is the twice yearly local take back program administe red by the [facility]. Other preferred options include medication drop box at a police station if a vailable, [employer]-authorized collection site or pharmacy secure drop-box program if available. ? Take Back Program: https://www.NexJ Systemsion.Get InoZula.gov/drug_disposal/takeback/ National P rescription Drug Take Back Day: January ? To find an authorized local medical insurance collector contact the [facility] Office of Diversion Control s Reg istration Call Center at ? Call your local pharmacy for recommendations. ? Search for a drug disposal location near you on the [facility] diversion control division search engine: https://apps.NexJ Systemsion.Get Inoj.gov/pubdispsearch/spring/main?execution=e1s1 At the time of printing: [facility] in [place], [facility] in [place], [facility] in [place] How to Dispose of Medicines at Home: Taken from the FDA guide How to Dispose of Unused Medicines https://www.fda.gov/ForConsumers/ConsumerUpdates/hsc074537.htm Disposing medicines in household trash: Almost all medicines can be thrown into your househ old trash. These include prescription drugs in pills, liquids, patches, creams, and inhalers . Follow these steps: 1. Remove the drugs from their original containers and mix them with something undesirable, such as used coffee grounds, dirt, or cat litter. This makes the medicine less appealing to children and pets and unrecognizable to someone who might intentionally go through the tras h looking for drugs. 2. Put the mixture in something you can close (a zipper storage bag, empty can, or other co ntainer) to prevent the drug from leaking or spilling out. 3. Throw the container in the garbage. 4. Scratch out all your personal information on the empty medicine packaging to protect you r identity and privacy. Throw the packaging away. 5. OR - keep in the original container, scratch out identifiers, add water and an undesira ble as listed above, close and seal with duct tape, and hide inside another piece of garbage . Flushing medicines: We do not recommend flushing opioids. *Local governments have the herman woo say in flushing disposal, please consult local laws and regulations first.* Resources: Diversion Control Division of the [employer], [place] Food and Drug Administration, AMA, CDC Medication Instructions: Do not exceed 4,000 mg of acetaminophen (Tylenol) per day. Hydrocodone-acetaminophen ([place] ) and Oxycodone-acetaminophen (Percocet) have 325 mg acetaminophen per tablet. Regular stre ngth acetaminophen is 325 mg per tablet. Extra strength has 500 mg per tablet. While you are taking the blood thinner (aspirin 325 mg twice daily), please do not take any NSAIDs (aspirin, ibuprofen, naproxen, Motrin, Advil, Aleve, etc.) These can increase your risk of bleeding. Watch for signs of bleeding: Easy bruising Bleeding from the gums Vomiting something that looks like coffee grounds Dark tarry stool Call the doctor if you experience any of these. Watch for signs of blood clots: DVT: hard, hot, hurt, red in back of calf PE or MN: sudden chest pain or trouble breathing Stroke: trouble thinking or weakness on one side of body Call 911 if you experience any of these symptoms. Do not consume alcohol while taking prescription pain medications. For constipation: While you are taking opioid pain medications (hydrocodone and/or oxycodone), continue to ta ke docusate and senna twice daily. This will both help you have a bowel movement and help t he stool stay soft and rdmi-oy-iorz. Remember to drink plenty of fluids and fiber-containin g foods. If you do not have a bowel movement within two days of returning home, add milk of magnesia 30 mL once each night and/or Miralax one capful (17 grams) dissolved in half a cup of water once daily for 3 days. These are available vkid-ger-ifxsjpu at any drugstore. If you are still constipated 3 days after discharge, contact the doctor's office. documented in this encounter Medications at Time of Discharge + + + +---------+ + + | Medication | Sig | Dispensed | Refills | Start | End Date | | | | | | Date | | + + + +---------+ + + | acetaminophen | Take 1-2 tablets by | 60 | 0 | 03/15/20 | | | (TYLENOL) 500 mg | mouth every 6 hours | tablet | | 19 | | | tablet | as needed for Pain. | | | | | + + + +---------+ + + | allopurinol | Take 300 mg by mouth | | 0 | | | | (ZYLOPRIM) 300 mg | Daily. | | | | | | tablet | | | | | | + + + +---------+ + + | atenolol | Take 50 mg by mouth | | 0 | | | | (TENORMIN) 50 mg | Daily. | | | | | | tablet | | | | | | + + + +---------+ + + | diphenhydrAMINE | Take 25 mg by mouth | | 0 | | | | (BENADRYL) 25 mg | every 6 hours as | | | | | | tablet | needed for Itching. | | | | | + + + +---------+ + + | empagliflozin | Take 25 mg by mouth | | 0 | | | | (JARDIANCE) 25 mg | Daily. | | | | | | tablet | | | | | | + + + +---------+ + + | glimepiride | Take 8 mg by mouth | | 0 | | | | (AMARYL) 4 mg tablet | every morning | | | | | | | (before breakfast). | | | | | + + + +---------+ + + | metFORMIN | Take 500 mg by mouth | | 0 | | | | (GLUCOPHAGE) 500 mg | 3 times daily. | | | | | | tablet | | | | | | + + + +---------+ + + | oxyCODONE | Take 1-2 tablets by | 30 | 0 | 03/15/20 | | | (ROXICODONE) 5 mg | mouth every 6 hours | tablet | | 19 | | | tablet | as needed for Pain. | | | | | + + + +---------+ + + | SITagliptin | Take 100 mg by mouth | | 0 | | | | (JANUVIA) 100 mg | Daily. | | | | | | tablet | | | | | | + + + +---------+ + + | aspirin 325 mg | Take 1 tablet by | 56 | 0 | 03/15/20 | | | tablet | mouth 2 times daily | tablet | | 19 | 9 | | | for 28 days. | | | | | + + + +---------+ + + documented as of this encounter Progress Notes Jr Meza DO - 03/15/2019 12:11 PM [facility] Neuraxial Opioid Follow-Up Pain level: Mild The patient had no complaints in the last 24 hours. Edmar is very happy with his anesthet ic care. He has had minimal pain and has been able to ambulate very well. He reports a great night sleep. The patient has no additional complaints at this time. The patient is in no acute distress. Recent vitals Temp: 36.4 C (97.5 F) Pulse: 65 Resp: 16 BP: 122/64 SpO2: 95 % room air Min/Max temp Temp Av.6 C (97.9 F) Min: 36 C (96.8 F) Max: 37.2 C (99 F ) @ The patient is able to ambulate Ramos: out. Status post spinal morphine PF The patient is doing well. Continue pain medications per surgeon/primary team. There is no apparent anesthetic complication noted at this time. Pain was under good control for duration of SAB narcotics. Juan Braswell, [facility] - 03/15/2019 11:36 AM Devora Roe is s/p RTHA and discharged home today (03/15/2019 .) Taught AVS education to patient. Educated patient on new blood thinner and pain medications . I explained indication, how to take, possible side effects, when to contact physician, and monitor parameters. We discussed aspirin: S/S clotting (stroke/DVt/PE), bleeding (bruising, bleeding, GI/), a voidance of additional NSAIDs, and when to seek medical attention. The patient was encourage d to ambulate often and to participate in PT. We discussed not to exceed 4,000 mg of acetaminophen per day. Patient was advised not to co nsume alcohol while taking opioid mediations. We discussed normal bowel movements should be about 1 to 2 per week. Advised patient to use docusate-senna twice daily until opioid pain medication regimen completed, and to add milk of magnesia and/or Miralax daily if no bowel m ovement within two days of discharge. Advised patient to contact surgeon's office if no bow el movement within three days of discharge. The patient verbalized understanding of the above and all questions were answered. Pharmaci st will follow-up with patient in one to two business days. Patient was provided with a charlie nciled discharge medication list as part of their AVS instructions. Encouraged patient to sh are medication list with healthcare providers and keep list current. Juan Jimenez RPH 03/15/2019 11:36 Deisi Mauricio PA-C - 03/15/2019 8:32 AM PDTFormatting of this note might be different from the tory murry Subjective: Post-Operative Day: 1 Day Post-Op Status Post ANG Systemic or Specific Complaints:Doing well, pain controlled, notes the ice cream didn't hel p his blood sugars and will do better. Objective: Patient Vitals for the past 24 hrs: BP Temp Temp src Pulse Resp SpO2 Height Weight 03/15/19 0423 112/57 36.3 C (97.3 F) Oral 68 16 94 % 03/15/19 0415 72 96 % 03/15/19 0018 131/63 36 C (96.8 F) Oral 74 16 96 % 03/15/19 0004 68 16 93 % 03/14/19 2100 115/69 64 16 94 % 03/14/192014 138/73 73 16 96 % 03/14/19 1944 73 18 97 % 03/14/19 1800 135/71 36.1 C (97 F) Oral 67 18 95 % 03/14/19 1728 127/70 36.6 C (97.9 F) Oral 56 16 97 % 03/14/19 1700 132/66 56 13 96 % 03/14/19 1655 132/67 58 10 97 % 03/14/19 1650 131/69 58 11 97 % 03/14/19 1645 127/85 56 14 94 % 03/14/19 1640 130/78 62 20 96 % 03/14/19 1635 137/66 57 17 95 % 03/14/19 1632 142/73 37.1 C (98.8 F) Temporal (!) 16 18 96 % 03/14/19 1630 142/73 59 8 98 % 03/14/19 1222 159/81 37.1 C (98.8 F) Temporal 60 16 97 % 1.727 m (5' 8") 97.3 kg (214 l b 8.1 oz) I/O last 24 Hours: In: 3389 [P.O.:740; I.V.:2649] Out: 1950 [Urine:1650; Blood:300] General: Alert and oriented, no distress Wound: Wound clean and dry no evidence of infection. Operative limb: Circulation: warm, well perfused, No evidence of DVT seen on physical exam. CMS: Neuro : sensation intact to dorsal and plantar foot. 5/5 EHL and tibialis anterior Data Review Recent Results (from the past 24 hour(s)) Hemoglobin Result Value Ref Range Hemoglobin 12.0 (L) 13.5 - 18.0 g/dL POC Glucose Result Value Ref Range Glucose, POC 184 (H) 70 - 109 mg/dL POC Glucose Result Value Ref Range Glucose, POC 199 (H) 70 - 109 mg/dL POC Glucose Result Value Ref Range Glucose, POC 272 (H) 70 - 109 mg/dL Hemoglobin and Hematocrit Result Value Ref Range Hematocrit 35.1 (L) 40.0 - 51.0 % Hemoglobin 10.8 (L) 13.5 - 18.0 g/dL Extra Green Top Tube Result Value Ref Range Extra Green Top Tube Done POC Glucose Result Value Ref Range Glucose, POC 281 (H) 70 - 109 mg/dL Assessment: Status Post Left ANG Expected acute blood loss anemia DM with SSI Plan: Continue current postoperative course Anemia protocol PT and OT today ASA for DVT prophylaxis Anticipate discharge today, eager and has a ride around 4pm, otherwise tomorrow morning documented in this encounter Plan of Treatment + +------+--------+ + + | Name | Type | Priori | Associated Diagnoses | Order Schedule | | | | ty | | | + +------+--------+ + + | DME: Walker | DME | Routin | Status post total | DME 1 Time for 1 | | | | e | hip replacement, | Occurrences starting | | | | | right | 03/14/2019 until | | | | | | 03/14/2019 | + +------+--------+ + + documented as of this encounter Procedures + +--------+ + + + | Procedure Name | Priori | Date/Time | Associated Diagnosis | Comments | | | ty | | | | + +--------+ + + + | POC GLUCOSE | Routin | 03/15/2019 | | Results for this | | | e | 11:15 AM | | procedure are in the | | | | PDT | | results section. | + +--------+ + + + | POC GLUCOSE | Routin | 03/15/2019 | | Results for this | | | e | 6:42 AM | | procedure are in the | | | | PDT | | results section. | + +--------+ + + + | EXTRA GREEN TOP TUBE | Routin | 03/15/2019 | | Results for this | | | e | 6:09 AM | | procedure are in the | | | | PDT | | results section. | + +--------+ + + + | HEMOGLOBIN AND | Routin | 03/15/2019 | | Results for this | | HEMATOCRIT | e | 6:09 AM | | procedure are in the | | | | PDT | | results section. | + +--------+ + + + | POC GLUCOSE | Routin | 03/14/2019 | | Results for this | | | e | 8:08 PM | | procedure are in the | | | | PDT | | results section. | + +--------+ + + + | POC GLUCOSE | Routin | 03/14/2019 | | Results for this | | | e | 4:54 PM | | procedure are in the | | | | PDT | | results section. | + +--------+ + + + | XR PELVIS 1 OR 2 VW | STAT | 03/14/2019 | | Results for this | | | | 4:44 PM | | procedure are in the | | | | PDT | | results section. | + +--------+ + + + | XR PELVIS 1 OR 2 VW | Routin | 03/14/2019 | | Results for this | | | e | 4:15 PM | | procedure are in the | | | | PDT | | results section. | + +--------+ + + + | ARTHROPLASTY HIP | | 03/14/2019 | Primary | | | | | 2:35 PM | osteoarthritis of | | | | | PDT | right hip | | + +--------+ + + + +---+--------+ | | | | | Specia | | | l | | | Needs | | | | | | Isabel | | | Total | | | Hip | | | Set | +---+--------+ + +--------+ +---+ + | POC GLUCOSE | Routin | 03/14/2019 | | Results for this | | | e | 1:23 PM | | procedure are in the | | | | PDT | | results section. | + +--------+ +---+ + | HEMOGLOBIN | Routin | 03/14/2019 | | Results for this | | | e | 12:57 PM | | procedure are in the | | | | PDT | | results section. | + +--------+ +---+ + | LABS - EXTERNAL SCAN | | 01/23/2019 | | Results for this | | | | 12:00 AM | | procedure are in the | | | | PDT | | results section. | + +--------+ +---+ + | ECG - EXTERNAL SCAN | | 01/23/2019 | | Results for this | | | | 12:00 AM | | procedure are in the | | | | PDT | | results section. | + +--------+ +---+ + documented in this encounter Results POC Glucose (03/15/2019 11:15 AM PDT) + +---------+ + + + | Component | Value | Ref Range | Performed | Pathologist | | | | | At | Signature | + +---------+ + + + | Glucose, | 269 (H) | 70 - 109 mg/dL | [facility] | | | POC | | | [facility] | | | | | | [facility] | | | | | [facility] - | | | | | | LABORATORY | | + +---------+ + + + + + | Specimen | + + | Blood | + + + + + + + | Performing | Address | City/State/Zipcode | Phone Number | | Organization | | | | + + + + + | [facility] | [address] | [place] | [phone] | | [facility] | | [id number] | | | - LABORATORY | | | | + + + + + POC Glucose (03/15/2019 6:42 AM PDT) + +---------+ + + + | Component | Value | Ref Range | Performed | Pathologist | | | | | At | Signature | + +---------+ + + + | Glucose, | 281 (H) | 70 - 109 mg/dL | [facility] | | | POC | | | [facility] | | | | | | MEDICAL | | | | | | CENTER - | | | | | | LABORATORY | | + +---------+ + + + + + | Specimen | + + | Blood | + + + + + + + | Performing | Address | City/State/Zipcode | Phone Number | | Organization | | | | + + + + + | [facility] | [address] | [place] | [phone] | | [facility] | | [address] | | | - LABORATORY | | | | + + + + + Extra Green Top Tube (03/15/2019 6:09 AM PDT) + +-------+ + + + | Component | Value | Ref Range | Performed | Pathologist | | | | | At | Signature | + +-------+ + + + | Extra Green | Done | | [facility] | | | Top Tube | | | [facility] | | | | | [facility] | | | | | | C[facility] - | | | | | | LABORATORY | | + +-------+ + + + + + | Specimen | + + | Blood | + + + + + + + | Performing | Address | City/State/Zipcode | Phone Number | | Organization | | | | + + + + + | [facility] | [address] | [place] | [phone] | | [facility] | | [address] | | | - LABORATORY | | | | + + + + + Hemoglobin and Hematocrit (03/15/2019 6:09 AM PDT) + + + + + + | Component | Value | Ref Range | Performed | Pathologist | | | | | At | Signature | + + + + + + | Hematocrit | 35.1 (L) | 40.0 - 51.0 % | [facility] | | | | | | [facility] | | | | | | MEDICAL | | | | | | CENTER - | | | | | | LABORATORY | | + + + + + + | Hemoglobin | 10.8 (L) | 13.5 - 18.0 | [facility] | | | | | g/dL | [facility] | | | | | | MEDICAL | | | | | | CENTER - | | | | | | LABORATORY | | + + + + + + + + | Specimen | + + | Blood | + + + + + + + | Performing | Address | City/State/Zipcode | Phone Number | | Organization | | | | + + + + + | [facility] | [address] | [place] | [phone] | | [facility] | | [address] | | | - LABORATORY | | | | + + + + + POC Glucose (03/14/2019 8:08 PM PDT) + +---------+ + + + | Component | Value | Ref Range | Performed | Pathologist | | | | | At | Signature | + +---------+ + + + | Glucose, | 272 (H) | 70 - 109 mg/dL | [facility] | | | [facility] | | | [facility] | | | | | [facility] | | | | | | [facility] - | | | | | | LABORATORY | | + +---------+ + + + + + | Specimen | + + | Blood | + + + + + + + | Performing | Address | City/State/Zipcode | Phone Number | | Organization | | | | + + + + + | [facility] | [address] | [place] | [phone] | | [facility] | | [address] | | | - LABORATORY | | | | + + + + + POC Glucose (03/14/2019 4:54 PM PDT) + +---------+ + + + | Component | Value | Ref Range | Performed | Pathologist | | | | | At | Signature | + +---------+ + + + | Glucose, | 199 (H) | 70 - 109 mg/dL | [facility] | | | P[facility] | | | [facility] | | | | | | [facility] | | | | | | [facility] - | | | | | | LABORATORY | | + +---------+ + + + + + | Specimen | + + | Blood | + + + + + + + | Performing | Address | City/State/Zipcode | Phone Number | | Organization | | | | + + + + + | [facility] | [address] | [place] | [phone] | | [facility] | | [address] | | | - LABORATORY | | | | + + + + + XR Pelvis 1 or 2 Vw (03/14/2019 4:44 PM PDT) + + | Specimen | + + | | + + + + + | Narrative | Performed At | + + + | XR PELVIS 1 OR 2 VW 03/14/2019 4:44 PM HISTORY: post op. | [facility] | | COMPARISON: Earlier same day radiograph FINDINGS: Expected | | | postsurgical changes are seen related to the total right hip | | | arthroplasty which appears in appropriate anatomic alignment. Mild | | | left hip degenerative changes. Vascular calcifications are noted. | | | IMPRESSION - No immediate postoperative complication identified. | | | Dictated and Signed by: Nikos Dumont MD Electronically signed: | | | 03/14/2019 11:53 PM | | + + + + + | Procedure Note | + + | Deshawn, Rad Results In - 03/14/2019 11:56 PM PDT XR PELVIS 1 OR 2 VW 03/14/2019 4:44 PM | | | | HISTORY: post op. | | | | COMPARISON: Earlier same day radiograph | | | | FINDINGS: | | Expected postsurgical changes are seen related to the total right hip | | arthroplasty which appears in appropriate anatomic alignment. | | | | Mild left hip degenerative changes. Vascular calcifications are noted. | | | | IMPRESSION - | | No immediate postoperative complication identified. | | | | Dictated and Signed by: Nikos Dumont MD | | Electronically signed: 03/14/2019 11:53 PM | + + + +---------+ + + | Performing | Address | City/State/Zipcode | Phone Number | | Organization | | | | + +---------+ + + | [facility] | | | | + +---------+ + + XR Pelvis 1 or 2 Vw (03/14/2019 4:15 PM PDT) + + | Specimen | + + | | + + + + + | Narrative | Performed At | + + + | XR PELVIS 1 OR 2 VW 03/14/2019 4:15 PM HISTORY: intra op. | [facility] | | COMPARISON: None. FINDINGS: In process total right hip | | | arthroplasty. Mild left hip degenerative changes. IMPRESSION - | | | Please see postoperative films for further detail. Please see | | | operative report. Dictated and Signed by: Nikos Dumont MD | | | Electronically signed: 03/14/2019 11:52 PM | | + + + + + | Procedure Note | + + | Deshawn, Josias Results In - 03/14/2019 11:55 PM PDT XR PELVIS 1 OR 2 VW 03/14/2019 4:15 PM | | | | HISTORY: intra op. | | | | COMPARISON: None. | | | | FINDINGS: | | In process total right hip arthroplasty. Mild left hip degenerative changes. | | | | IMPRESSION - | | Please see postoperative films for further detail. | | | | Please see operative report. | | | | Dictated and Signed by: Nikos Dumont MD | | Electronically signed: 03/14/2019 11:52 PM | + + + +---------+ + + | Performing | Address | City/State/Zipcode | Phone Number | | Organization | | | | + +---------+ + + | [facility] | | | | + +---------+ + + POC Glucose (03/14/2019 1:23 PM PDT) + +---------+ + + + | Component | Value | Ref Range | Performed | Pathologist | | | | | At | Signature | + +---------+ + + + | Glucose, | 184 (H) | 70 - 109 mg/dL | [facility] | | | [facility] | | | [facility] | | | | | [facility] | | | | | | [facility] - | | | | | | LABORATORY | | + +---------+ + + + + + | Specimen | + + | Blood | + + + + + + + | Performing | Address | City/State/Zipcode | Phone Number | | Organization | | | | + + + + + | [facility] | [address] | [place] | [phone] | | [facility] | | [address] | | | - LABORATORY | | | | + + + + + Hemoglobin (03/14/2019 12:57 PM PDT) + + + + + + | Component | Value | Ref Range | Performed | Pathologist | | | | | At | Signature | + + + + + + | Hemoglobin | 12.0 (L) | 13.5 - 18.0 | [facility] | | | | | g/dL | [facility] | | | | | | [facility] | | | | | | [facility] - | | | | | | LABORATORY | | + + + + + + + + | Specimen | + + | Blood | + + + + + + + | Performing | Address | City/State/Zipcode | Phone Number | | Organization | | | | + + + + + | [facility] | [address] | [place] | [phone] | | [facility] | | [address] | | | - LABORATORY | | | | + + + + + LABS - EXTERNAL SCAN (01/23/2019 12:00 AM PDT) + + + | Narrative | Performed At | + + + | Ordered by an | | | unspecified provider. | | + + + ECG - EXTERNAL SCAN (01/23/2019 12:00 AM PDT) + + + | Narrative | Performed At | + + + | Ordered by an | | | unspecified provider. | | + + + documented in this encounter Visit Diagnoses + + | Diagnosis | + + | Primary osteoarthritis of right hip Primary localized osteoarthrosis, pelvic region | | and thigh | + + documented in this encounter Admitting Diagnoses + + | Diagnosis | + + | Primary osteoarthritis of right hip Primary localized osteoarthrosis, pelvic region | | and thigh | + + documented in this encounter Administered Medications + +--------+ +--------+------+------+ | Medication Order | MAR | Action | Dose | Rate | Site | | | Action | Date | | | | + +--------+ +--------+------+------+ | acetaminophen (TYLENOL) tablet | Given | 03/15/20 | 650 mg | | | | 650 mg 650 mg, Oral, EVERY | | 19 11:16 | | | | | HOURS (4 times per day), First | | AM PDT | | | | | dose on Tue03/14/19 at 1800, | | | | | | | Post-op/Phase II | | | | | | + +--------+ +--------+------+------+ +-------+ +--------+---+---+ | Given | 03/15/20 | 650 mg | | | | | 19 6:40 | | | | | | AM PDT | | | | +-------+ +--------+---+---+ | Given | 03/14/20 | 650 mg | | | | | 19 11:04 | | | | | | PM PDT | | | | +-------+ +--------+---+---+ +---+---+ | | | +---+---+ + +-------+ + +---+---+ | adult multivitamin with | Given | 03/15/20 | 1 tablet | | | | minerals/iron tablet 1 tablet 1 | | 19 8:03 | | | | | tablet, Oral, DAILY, First dose | | AM PDT | | | | | on Tue03/14/19 at 1745, | | | | | | | Post-op/Phase II | | | | | | + +-------+ + +---+---+ +-------+ + +---+---+ | Given | 03/14/20 | 1 tablet | | | | | 19 6:03 | | | | | | PM PDT | | | | +-------+ + +---+---+ +---+---+ | | | +---+---+ + +-------+ +--------+---+---+ | allopurinol (ZYLOPRIM) tablet | Given | 03/15/20 | 300 mg | | | | 300 mg 300 mg, Oral, DAILY, | | 19 8:03 | | | | | First dose on Tue03/14/19 at | | AM PDT | | | | | 1745, Post-op/Phase II | | | | | | + +-------+ +--------+---+---+ +-------+ +--------+---+---+ | Given | 03/14/20 | 300 mg | | | | | 19 6:04 | | | | | | PM PDT | | | | +-------+ +--------+---+---+ +---+---+ | | | +---+---+ + +-------+ +--------+---+---+ | aspirin EC tablet 325 mg 325 | Given | 03/15/20 | 325 mg | | | | mg, Oral, 2 TIMES DAILY, First | | 19 8:03 | | | | | dose on Tue03/15/19 at 0900, Do | | AM PDT | | | | | not cut or crush Give first dose | | | | | | | within 20 hours of surgery end | | | | | | | time. Nursing/Pharmacy to retime | | | | | | | first dose to 1900 for surgeries | | | | | | | ending between 2200 and 0900., | | | | | | | Post-op/Phase II | | | | | | + +-------+ +--------+---+---+ +---+---+ | | | +---+---+ + +-------+ +-------+---+---+ | atenolol (TENORMIN) tablet 50 | Given | 03/15/20 | 50 mg | | | | mg 50 mg, Oral, DAILY, First | | 19 8:03 | | | | | dose on Tue03/14/19 at 1745, | | AM PDT | | | | | Post-op/Phase II | | | | | | + +-------+ +-------+---+---+ +-------+ +-------+---+---+ | Given | 03/14/20 | 50 mg | | | | | 19 6:03 | | | | | | PM PDT | | | | +-------+ +-------+---+---+ +---+---+ | | | +---+---+ + +-------+ +--------+---+ + | bupivacaine 0.25%-EPINEPHrine | Given | 03/14/20 | 30 mLs | | Surgical | | 1:200,000 (PF) injection PRN, | | 19 3:08 | | | Site | | Starting Tue03/14/19 at 1508, | | PM PDT | | | | | Intra-op | | | | | | + +-------+ +--------+---+ + +---+---+ | | | +---+---+ + +-------+ +--------+---+---+ | celecoxib (CELEBREX) capsule | Given | 03/15/20 | 200 mg | | | | 200 mg 200 mg, Oral, 2 TIMES | | 19 8:03 | | | | | DAILY, First dose on Tue03/14/19 | | AM PDT | | | | | at 2100, Doses > 200 mg should be | | | | | | | given with meals., Post-op/Phase | | | | | | | II | | | | | | + +-------+ +--------+---+---+ +-------+ +--------+---+---+ | Given | 03/14/20 | 200 mg | | | | | 19 8:03 | | | | | | PM PDT | | | | +-------+ +--------+---+---+ + +---+ | | | + +---+ | dextrose 10% (D10W) infusion | | | at 50 mL/hr, Intravenous, | | | CONTINUOUS PRN, hypoglycemia, | | | Starting 03/14/19 at 1727, | | | Start infusion if unable to | | | maintain blood glucose greater | | | than 70 mg/dL after two rounds of | | | hypoglycemia treatment. Recheck | | | blood glucose 30 minutes after | | | starting D10W then at least | | | hourly and PRN until it is | | | discontinued. Call provider to | | | discuss parameters for D10W | | | discontinuation., Post-op/Phase | | | II | | + +---+ | | | + +---+ | dextrose 50% injection 12.5-25 | | | g 12.5-25 g, Intravenous, PRN, | | | Low Blood Sugar, Starting Wed | | | 03/14/19 at 1727, For blood | | | glucose 50-69 mg/dl - give 12.5 g | | | For blood glucose less than 50 | | | mg/dl - give 25 g, Post-op/Phase | | | II | | + +---+ | | | + +---+ | diphenhydrAMINE (BENADRYL) 12.5 | | | mg/5 mL liquid 25 mg 25 mg, | | | Oral, EVERY 4 HOURS PRN, Itching, | | | Starting 03/14/19 at 1727, | | | Oral route is preferred., | | | Post-op/Phase II | | + +---+ | | | + +---+ | diphenhydrAMINE (BENADRYL) | | | injection 12.5 mg 12.5 mg, | | | Intravenous, EVERY 4 HOURS PRN, | | | Itching, Starting 03/14/19 at | | | 1727, Oral route is preferred., | | | Post-op/Phase II | | + +---+ | | | + +---+ | diphenhydrAMINE (BENADRYL) | | | tablet 25 mg 25 mg, Oral, EVERY | | | 4 HOURS PRN, Itching, Starting | | | 03/14/19 at 1727, Oral route | | | is preferred., Post-op/Phase II | | + +---+ | | | + +---+ + +-------+ +--------+---+---+ | docusate sodium (COLACE) | Given | 03/15/20 | 100 mg | | | | capsule 100 mg 100 mg, Oral, 2 | | 19 8:03 | | | | | TIMES DAILY, First dose on Tue | | AM PDT | | | | | 03/14/19 at 2100, First line agent | | | | | | | for constipation, Post-op/Phase | | | | | | | II | | | | | | + +-------+ +--------+---+---+ +-------+ +--------+---+---+ | Given | 03/14/20 | 100 mg | | | | | 19 8:03 | | | | | | PM PDT | | | | +-------+ +--------+---+---+ +---+---+ | | | +---+---+ + +-------+ +------+---+---+ | glimepiride (AMARYL) tablet 8 | Given | 03/15/20 | 8 mg | | | | mg 8 mg, Oral, DAILY BEFORE | | 19 6:40 | | | | | BREAKFAST, First dose on Tue | | AM PDT | | | | | 03/14/19 at 1745, Post-op/Phase II | | | | | | + +-------+ +------+---+---+ +-------+ +------+---+---+ | Given | 03/14/20 | 8 mg | | | | | 19 6:03 | | | | | | PM PDT | | | | +-------+ +------+---+---+ +---+---+ | | | +---+---+ + +-------+ +---------+---+ + | insulin lispro (humaLOG | Given | 03/15/20 | 3 Units | | Arm-Perez | | KWIKPEN) injection (pen) 0-6 | | 19 12:06 | | | t Upper | | Units 0-6 Units, Subcutaneous, 4 | | PM PDT | | | | | TIMES DAILY WITH MEALS & | | | | | | | NIGHTLY, First dose on Tue | | | | | | | 03/14/19 at 1745, CORRECTION | | | | | | | SCALE: Blood Glucose (BG) < | | | | | | | 150: None BG | | | | | | | 150-200: DAY: 1 units. NIGHT: 0 | | | | | | | units BG 201-250: DAY: 2 units. | | | | | | | NIGHT: 1 units BG 251-300: | | | | | | | DAY: 3 units. NIGHT: 2 units | | | | | | | BG 301-350: DAY: 4 units. NIGHT: | | | | | | | 3 units BG 351-400: DAY: 5 | | | | | | | units. NIGHT: 4 units BG > | | | | | | | 400 : DAY: 6 units. NIGHT: 5 | | | | | | | units | | | | | | | AND CALL PROVIDER Use DAY DOSE | | | | | | | for doses scheduled: AC, | | | | | | | NPO, Daytime [id number] Use NIGHT | | | | | | | DOSE for doses scheduled: | | | | | | | HS, 3AM, Nighttime [id number] If | | | | | | | the BG is not checked before the | | | | | | | patient starts eating, do not | | | | | | | give correction insulin. If HS | | | | | | | insulin given, check blood | | | | | | | glucose at 3AM., Post-op/Phase II | | | | | | + +-------+ +---------+---+ + +-------+ +---------+---+ + | Given | 03/15/20 | 3 Units | | Abdomen- | | | 19 7:00 | | | RLQ | | | AM PDT | | | | +-------+ +---------+---+ + | Given | 03/14/20 | 2 Units | | Arm-Left | | | 19 8:12 | | | Upper | | | PM PDT | | | | +-------+ +---------+---+ + +---+---+ | | | +---+---+ + +---------+ +---+-------+---+ | lactated ringers (LR) infusion | New Bag | 03/14/20 | | 100 | | | at 10-100 mL/hr, Intravenous, | | 19 6:06 | | mL/hr | | | CONTINUOUS, Starting 03/14/19 | | PM PDT | | | | | at 1315, TKO., Pre-op | | | | | | + +---------+ +---+-------+---+ +---------+ +--------+-------+---+ | New Bag | 03/14/20 | 1,000 | 100 | | | | 19 1:08 | mLs | mL/hr | | | | PM PDT | | | | +---------+ +--------+-------+---+ +---+---+ | | | +---+---+ + +---------+ +---+-------+---+ | lactated ringers (LR) infusion | New Bag | 03/15/20 | | 100 | | | at 100 mL/hr, Intravenous, FIXED | | 19 4:57 | | mL/hr | | | VOLUME (see admin instruction), | | AM PDT | | | | | Starting 03/14/19 at 1745, 2 | | | | | | | liters then discontinue, | | | | | | | Post-op/Phase II | | | | | | + +---------+ +---+-------+---+ +---------+ +---+-------+---+ | New Bag | 03/14/20 | | 100 | | | | 19 7:54 | | mL/hr | | | | PM PDT | | | | +---------+ +---+-------+---+ + +---+ | | | + +---+ | morphine injection 2-6 mg 2-6 | | | mg, Intravenous, EVERY 2 HOURS | | | PRN, Pain, Starting 03/14/19 | | | at 1727, For 24 hours, Slow IV | | | push, not faster than 2 | | | mg/minute. If ineffective or not | | | tolerated, use hydromorphone IV | | | if ordered., Anesthesiology | | | approved? Yes, Post-op/Phase II | | + +---+ | | | + +---+ | nalbuphine (NUBAIN) injection | | | 2.5-5 mg 2.5-5 mg, Intravenous, | | | EVERY 4 HOURS PRN, Itching, | | | Starting 03/14/19 at 1727, For | | | 24 hours, For itching, use the | | | following sequence if meds are | | | ordered: Give nalbuphine first. | | | If maximum dose given or | | | ineffective, give | | | diphenhydramine, Post-op/Phase II | | + +---+ | | | + +---+ | naloxone (NARCAN) 0.4 mg/mL | | | injection 0.04 mg 0.04 mg, | | | Intravenous, PRN, Itching, or | | | repiratory rate < 8, Starting Wed | | | 03/14/19 at 1727, For 24 hours, | | | Mix 0.4mg (1 vial) with 9 ml | | | normal saline in syringe and give | | | 1 ml (0.04mg) For Itching - | | | Give Q 10 Min prn Use if | | | Nalbuphine and diphenhydramine | | | are ineffective and call | | | anesthesia provider. For RR < 8 | | | - Give Q 2 Min prn until RR > 12. | | | Notify anesthesia provider on | | | call or Pain Management | | | Physician if administered., | | | Post-op/Phase II | | + +---+ | | | + +---+ | naloxone (NARCAN) 0.4 mg/mL | | | injection 0.4 mg 0.4 mg, | | | Intravenous, ONCE PRN, Apnea, | | | Starting 03/14/19 at 1727, For | | | 24 hours, For respiratory | | | arrest, give dose STAT, call Code | | | Blue and notify anesthesiologist | | | solutions developer., Post-op/Phase II | | + +---+ | | | + +---+ + +-------+ +------+---+---+ | oxyCODONE (ROXICODONE) tablet | Given | 03/15/20 | 5 mg | | | | 2.5-10 mg 2.5-10 mg, Oral, EVERY | | 19 2:56 | | | | | 3 HOURS PRN, Pain, Starting Wed | | PM PDT | | | | | 03/14/19 at 1727, First dose must | | | | | | | be the lowest dose, can titrate | | | | | | | to effective dose by repeat of | | | | | | | lowest dose every 60 minutes prn | | | | | | | pain, may not exceed maximum dose | | | | | | | ordered per interval. Use Pasero | | | | | | | Sedation Scale., Post-op/Phase | | | | | | | II | | | | | | + +-------+ +------+---+---+ + +---+ | | | + +---+ | oxyCODONE (ROXICODONE) tablet | | | 5-15 mg 5-15 mg, Oral, EVERY 3 | | | HOURS PRN, Pain, Starting Wed | | | 03/14/19 at 1727, For 24 hours, If | | | ineffective or not tolerated, | | | contact prescriber, | | | Anesthesiology approved? Yes, | | | Post-op/Phase II | | + +---+ | | | + +---+ + +-------+ +-------+---+---+ | pregabalin (LYRICA) capsule 75 | Given | 03/15/20 | 75 mg | | | | mg 75 mg, Oral, 2 TIMES DAILY, | | 19 8:03 | | | | | First dose on Tue03/14/19 at | | AM PDT | | | | | 2100, Post-op/Phase II | | | | | | + +-------+ +-------+---+---+ +-------+ +-------+---+---+ | Given | 03/14/20 | 75 mg | | | | | 19 8:03 | | | | | | PM PDT | | | | +-------+ +-------+---+---+ +---+---+ | | | +---+---+ + +-------+ +--------+---+---+ | senna (SENOKOT) tablet 8.6 mg | Given | 03/15/20 | 8.6 mg | | | | 8.6 mg, Oral, 2 TIMES DAILY, | | 19 8:03 | | | | | First dose on Tue03/14/19 at | | AM PDT | | | | | 2100, If docusate ineffective or | | | | | | | not ordered, Post-op/Phase II | | | | | | + +-------+ +--------+---+---+ +-------+ +--------+---+---+ | Given | 03/14/20 | 8.6 mg | | | | | 19 8:03 | | | | | | PM PDT | | | | +-------+ +--------+---+---+ +---+---+ | | | +---+---+ + +-------+ +--------+---+---+ | SITagliptin (JANUVIA) tablet | Given | 03/15/20 | 100 mg | | | | 100 mg 100 mg, Oral, DAILY, | | 19 8:03 | | | | | First dose on Tue03/14/19 at | | AM PDT | | | | | 1745, Post-op/Phase II | | | | | | + +-------+ +--------+---+---+ +-------+ +--------+---+---+ | Given | 03/14/20 | 100 mg | | | | | 19 6:04 | | | | | | PM PDT | | | | +-------+ +--------+---+---+ +---+---+ | | | +---+---+ documented in this encounter
--- OUTSIDE RECORDS SUMMARY | ~2019-10-16 | XMS | Encounter Summary ---
Demographics + + + | Address | [address] | | | [place] [address] | + + + | Home Phone | | + + + | Preferred Language | Unknown | + + + | Marital Status | | + + + | Lutheran Affiliation | Unknown | + + + | Race | Unknown | + + + | Ethnic Group | Unknown | + + + Author + + + | Author | [facility] | | | and [place] | + + + | Organization | [facility] | | | and [place] | + + + | Address | Unknown | + + + | Phone | Unavailable | + + + Support + + + + + | Name | Relationship | Address | Phone | + + + + + | Chula Roe | ECON | [address] | | | | | [place] | | | | | [address] | | + + + + + Care Team Providers + +------+ + | Care Daycare Director Name | Role | Phone | + [...] | | | | | [address] [place] | [address] | | | | | [place] [address] | [place] [address] | | | | | [phone] | [phone] | | | | | | | [...]
--- OUTSIDE RECORDS SUMMARY | ~2019-10-16 | XMS | Encounter Summary ---
Demographics + + + | Address | [address] | | | [place] [address] | + + + | Home Phone | | + + + | Preferred Language | Unknown | + + + | Marital Status | | + + + | Orthodox Affiliation | Unknown | + + + | Race | White | + + + | Ethnic Group | Other Race | + + + Author + + + | Author | [facility] | + + + | Organization | [facility] | + + + | Address | Unknown | + + + | Phone | Unavailable | + + + Care Team Providers + +------+ + | Care Cms Expert Name | Role | Phone | + [...] [id number] | | | | | | [facility] | | | | | | and Healing, | | | | | | [address] | | | | | | Floor [place], [place] | | | | | | [address] | | | | | | [phone] | | | +--------+ + + + [...] heredia-pinkskin, | | | | | | [id number]. The specimen | | | | | [...] + + + + | [facility] | [facility], [address] | [place] [address] | | | DERMATOPATHOLOGY | [address] [...] | | | | | | skin, [id number]. The | | | | | | [...] [facility] | [address] [facility] | [place] [address] | | | DERMATOPATHOLOGY | [address] | | | + + + + + documented in this encounter Visit Diagnoses Not on filedocumented in this encounter
--- OUTSIDE RECORDS SUMMARY | ~2019-10-16 | XMS | Encounter Summary ---
Demographics + + + | Address | [address] | | | [place] [address] | + + + | Home Phone | | + + + | Preferred Language | Unknown | + + + | Marital Status | | + + + | Hindu Affiliation | Unknown | + + + | Race | Unknown | + + + | Ethnic Group | Unknown | + + + Author + + + | Author | [facility] | | | and [place] | + + + | Organization | [facility] | | | and [place] | + + + | Address | Unknown | + + + | Phone | Unavailable | + + + Support + + + + + | Name | Relationship | Address | Phone | + + + + + | Chula Roe | ECON | [address] | | | | | [place] | | | | | [address] | | + + + + + Care Team Providers + +------+ + | Care District Plant Supervisor Name | Role | Phone | + +------+ + | Edin Gavin MD | PCP | | + +------+ + Reason for Referral Diagnostic/Screening (Routine) +--------+--------+ + + + + | Status | Reason | Specialty | Diagnoses / | Referred By | Referred To | | | | | Procedures | Contact | Contact | +--------+--------+ + + + + | Closed | | Radiology | Diagnoses | [place], | [facility] | | | | | Bundle | Eran Worthy MD | Medicine | | | | | branch | [address] | [address] | | | | | block, right | [place] | [place], | | | | | Abnormal | [place], [place] | [place] | | | | | EKG | [address] | [address] | | | | | Procedures | Phone: | Phone: | | | | | [place] [facility] | [phone] | [phone] | | | | | Stress Test | Fax: | Fax: | | | | | (Vasodilator | [phone] | [phone] | | | | | ) | | | +--------+--------+ + + + + Reason for Visit Diagnostic/Screening (Routine) +--------+--------+ + + + + | Status | Reason | Specialty | Diagnoses / | Referred By | Referred To | | | | | Procedures | Contact | Contact | +--------+--------+ + + + + | Closed | | Radiology | Diagnoses | [place], | [facility] | | | | | Bundle | Eran Worthy MD | Medicine | | | | | branch | [address] | [address] | | | | | block, right | [place] | [place], | | | | | Abnormal | [place], [place] | [place] | | | | | EKG | [address] | [address] | | | | | Procedures | Phone: | Phone: | | | | | [facility] | [phone] | [phone] | | | | | Stress Test | Fax: | Fax: | | | | | (Vasodilator | [phone] | [phone] | | | | | ) | | | +--------+--------+ + + + + Encounter Details +--------+ + + + + | Date | Type | Department | Care Team | Description | +--------+ + + + + | 02/22/ | Hospital | [facility] | Eran Smith MD | Bundle branch block, | | 2019 | Encounter | MED CTR NUCLEAR | [address] | right; Abnormal EKG | | | | MEDICINE [address] | [place], [place] | | | | | [place], | [address] | | | | | [place] [address] | [phone] | | | | | [phone] | | | | | | | Dependency CounselorTammie | | +--------+ + + + + [...] + + + | Blood Pressure | - | - | | + + + + + | Pulse | - | - | | + + + + + | Temperature | - | - | | + + + + + | Respiratory Rate | - | - | | + + + + + | Oxygen Saturation | - | - | | + + + + + | Inhaled Oxygen | - | - | | | Concentration | | | | + + + + + | Weight | 95.3 kg (210 lb) | 02/22/2019 9:00 AM | | | | | PDT | | + + + + + | Height | - | - | | + + + + + | Body Mass Index | - | - | | + + + + + documented in this encounter Plan of Treatment Not on [...] + + documented in this encounter Results [place] Nuclear Stress Test (Vasodilator) (02/22/2019 10:47 AM PDT) + +--------+ + + + | Component | Value | Ref Range | Performed | Pathologist | | | | | At | Signature | + +--------+ + + + | BASELINE | 72 | bpm | [facility] | | | HEART RATE | | | | | + +--------+ + + + | BASELINE | 131/74 | mmHg | [facility] | | | BLOOD | | | | | | PRESSURE | | | | | + +--------+ + + + | PEAK HEART | 80 | | [facility] | | | RATE | | | | | + +--------+ + + + | PEAK BLOOD | 159/74 | mmHG | [facility] | | | PRESSURE | | | | | + +--------+ + + + | Target HR | 129 | | [facility] | | + +--------+ + + + | Percent HR | 53 | | [facility] | | + +--------+ + + + | LVEF-SPECT | 77 | % | [facility] | | | NUCLEAR | | | | | | STRESS/VIAB | | | | | | ILITY | | | | | + +--------+ + + + + + | Specimen | + + | | + + + + + | Narrative | Performed At | + + + | 1. | [facility] | | Pharmacologic stress notable for baseline abnormal ECG without | | | diagnostic changes or symptoms.2. Normal LV size and systolic | | | function with LVEF 77%.3. No perfusion abnormalities noted.4. | | | Overall this is a low risk stress perfusion imaging study. | | + + + + +---------+ + + | Performing | Address | City/State/Zipcode | Phone Number | | Organization | | | | + +---------+ + + | [facility] | | | | + +---------+ + + documented in this encounter Visit Diagnoses + + | Diagnosis | + + | Bundle branch block, right Right bundle branch block | + + | Abnormal EKG Nonspecific abnormal electrocardiogram (ECG) (EKG) | + + documented in this encounter Administered Medications + +--------+ +-------+------+------+ | Medication Order | MAR | Action | Dose | Rate | Site | | | Action | Date | | | | + +--------+ +-------+------+------+ | aminophylline injection 75 mg | Given | 02/23/20 | 75 mg | | | | 75 mg, Intravenous, ONCE PRN, per | | 19 9:43 | | | | | doctor, Starting [facility] 02/22/19 at | | AM PDT | | | | | 0943, For 1 dose, Nuclear | | | | | | | Medicine | | | | | | + +--------+ +-------+------+------+ +---+---+ | | | +---+---+ + +-------+ + +--------+---+ | dipyridamole (PERSANTINE) 60mg | Given | 02/23/20 | 13.5326 | 541.3 | | | in 40 mL NS syringe 0.142 | | 19 10:00 | mg/min | mL/hr | | | mg/kg/min | | AM PDT | | | | | 95.3 kg (541.304 mL/hr, rounded | | | | | | | to 541.3 mL/hr), Intravenous, | | | | | | | Administer over 4 Minutes, ONCE, | | | | | | | [facility] 02/22/19 at 1000, For 1 dose, | | | | | | | Nuclear Medicine | | | | | | + +-------+ + +--------+---+ +---+---+ | | | +---+---+ + +-------+ + +---+---+ | technetium TC-99M sestamibi | Given | 02/23/20 | 10.5 | | | | (CARDIOLITE) injection 10.5 | | 19 9:43 | millicur | | | | millicurie 10.5 millicurie, | | AM PDT | ies | | | | Intravenous, ONCE PRN, Other, | | | | | | | Starting [facility] 02/22/19 at 0942, For | | | | | | | 1 dose, Nuclear Medicine | | | | | | + +-------+ + +---+---+ +---+---+ | | | +---+---+ documented in this encounter"
--- OUTSIDE RECORDS SUMMARY | ~2019-10-16 | XMS | Encounter Summary ---
Demographics + + + | Address | [address] | | | [place] [address] | + + + | Home Phone | | + + + | Preferred Language | Unknown | + + + | Marital Status | | + + + | Gnosticist Affiliation | Unknown | + + + | Race | Unknown | + + + | Ethnic Group | Unknown | + + + Author + + + | Author | [facility] | | | and [place] | + + + | Organization | [facility] | | | and [place] | + + + | Address | Unknown | + + + | Phone | Unavailable | + + + Support + + + + + | Name | Relationship | Address | Phone | + + + + + | Chula Roe | ECON | [address] | | | | | [place] | | | | | [address] | | + + + + + Care Team Providers + +------+ + | Care Pet Store Merchandiser Name | Role | Phone | + [...] | | | | | | | [place] | | | | | | [...] | | | | | [address] | [place] | | | | | [place] | [address] | | | | | [address] | | | | | | [phone] | Francis Strauss | | | | | | MD Antonio [address] | | | | | | [address] [place] | | | | | | [place] [address] | | | | | | [phone] | | | | | | | [...] +----+---+ + + | | 1 | [place] | | | | 5 | 43-degrees [...] +----+---+ + + | | 1 | [place] off | | | | 6 | [...] | | BARBY Vaughan | | | [id number]-qfsbsw catheter system; | | | | | [...] |Ease of procedure: easy | |Performing provider: Jr Meza DO | [...]
--- OUTSIDE RECORDS SUMMARY | ~2019-10-16 | XMS | Encounter Summary ---
Demographics + + + | Address | [address] | | | [place] [address] | + + + | Home Phone | | + + + | Preferred Language | Unknown | + + + | Marital Status | | + + + | Gnosticist Affiliation | Unknown | + + + | Race | Unknown | + + + | Ethnic Group | Unknown | + + + Author + + + | Author | [facility] | | | and [place] | + + + | Organization | [facility] | | | and [place] | + + + | Address | Unknown | + + + | Phone | Unavailable | + + + Support + + + + + | Name | Relationship | Address | Phone | + + + + + | Chula Roe | ECON | [address] | | | | | [place] | | | | | [address] | | + + + + + Care Team Providers + +------+ + | Care Finishing Inspector Name | Role | Phone | + [...] | | | | | | | [place] | | | | | | [...] + + + + | 03/14/ | Hospital | [facility] | Eran Smith MD | | | 2019 | Encounter | MED CTR XRAY [address] | [address] | | | | | [place] | [place] | | | | | [place] [address] | [address] | | | | | [phone] | | | | | | | [...] + + documented as of this encounter Medications at Time of Discharge [...] + | aspirin 325 mg | Take 325 mg by mouth | | 0 | | | | tablet | Daily. | | | | 9 | + + + +---------+ + + [...] + + documented in this encounter Results XR Pelvis 1 or 2 Vw (03/14/2019 [...] | Procedure Note | + + | Josias Hess Results In - 03/14/2019 11:55 PM PDT [...]
--- OUTSIDE RECORDS SUMMARY | ~2019-10-16 | XMS | Encounter Summary ---
Demographics + + + | Address | [address] | | | [place] [address] | + + + | Home Phone | | + + + | Preferred Language | Unknown | + + + | Marital Status | | + + + | Denominational Affiliation | Unknown | + + + | Race | Unknown | + + + | Ethnic Group | Unknown | + + + Author + + + | Author | [facility] | | | and [place] | + + + | Organization | [facility] | | | and [place] | + + + | Address | Unknown | + + + | Phone | Unavailable | + + + Support + + + + + | Name | Relationship | Address | Phone | + + + + + | Chula Roe | ECON | [address] | | | | | [place] | | | | | [address] | | + + + + + Care Team Providers + +------+ + | Care Assisted Living Associate Name | Role | Phone | + +------+ + | Edin Gavin MD | PCP | | + +------+ + Encounter Details +--------+ + + + + | Date | Type | Department | Care Team | Description | +--------+ + + + + | 02/22/ | Hospital | [facility] | Eran Smith MD | | | 2019 | Encounter | MED CTR NUCLEAR | [address] | | | | | MEDICINE [address] | [place], [place] | | | | | [place], | [address] | | | | | [place] [address] | [phone] | | | | | [phone] | | | +--------+ + + + [...] | | | | | | Starting [facility] 02/22/19 at 1046, For | | | | | | | 1 dose, Nuclear Medicine | | | | | | + +--------+ + +------+------+ +---+---+ | | | +---+---+ documented in this encounter"
--- OUTSIDE RECORDS SUMMARY | ~2019-10-16 | XMS | Encounter Summary ---
Demographics + + + | Address | [address] | | | [place] [address] | + + + | Home Phone | | + + + | Preferred Language | Unknown | + + + | Marital Status | | + + + | Protestant Affiliation | Unknown | + + + | Race | Unknown | + + + | Ethnic Group | Unknown | + + + Author + + + | Author | [facility] | | | and [place] | + + + | Organization | [facility] | | | and [place] | + + + | Address | Unknown | + + + | Phone | Unavailable | + + + Support + + + + + | Name | Relationship | Address | Phone | + + + + + | Chula Roe | ECON | [address] | | | | | [place] | | | | | [address] | | + + + + + Care Team Providers + +------+ + | Care Argon Tester Name | Role | Phone | + [...] | | | | | | | [place] | | | | | | [...] | 03/14/ | Hospital | [facility] | Eran Smith MD | | | 2019 | Encounter | MED CTR XRAY [address] | [address] | | | | | [place] | [place] | | | | | [place] [address] | [address] | | | | | [phone] | [phone] | | | | | | | [...]
--- OUTSIDE RECORDS SUMMARY | ~2019-10-16 | XMS | Encounter Summary ---
Demographics + + + | Address | [address] | | | [place] [address] | + + + | Home Phone | | + + + | Preferred Language | Unknown | + + + | Marital Status | | + + + | Restorationism Affiliation | Unknown | + + + | Race | Unknown | + + + | Ethnic Group | Unknown | + + + Author + + + | Author | [facility] | | | and [place] | + + + | Organization | [facility] | | | and [place] | + + + | Address | Unknown | + + + | Phone | Unavailable | + + + Support + + + + + | Name | Relationship | Address | Phone | + + + + + | Chula Roe | ECON | [address] | | | | | [place] | | | | | [address] | | + + + + + Care Team Providers + +------+ + | Care Gas Main Fitter Helper Name | Role | Phone | + +------+ + PCP | Unavailable | + +------+ + Encounter Details +--------+ + + + + | Date | Type | Department | Care Team | Description | +--------+ + + + + | 01/24/ | Imaging | [facility] | Provider, | | | 2019 | Exam | MED CTR EXTERNAL | [address] | | | | | IMAGING | [address] [place] | | | | | [phone] | [place] [address] | | +--------+ + + + + [...] + +--------+ + + + | XR HIP RIGHT 2-3 | Routin | 12/12/2018 | | Results for this | | VIEWS | e | 9:40 AM | | procedure are in the | | | | PDT | | results section. | + +--------+ + + + documented in this encounter Results XR Hip Right 2-3 Views (12/12/2018 9:40 AM PDT) + + | Specimen | + + | | + + + + + | Narrative | Performed At | + + + | External films for comparison only | [facility] | | | | | No results will be in the chart. | | + + + + +---------+ + + | Performing | Address | City/State/Zipcode | Phone Number | | Organization | | | | + +---------+ + + | [facility] | | | | + +---------+ + + documented in this encounter Visit Diagnoses Not on filedocumented in this encounter"
--- OUTSIDE RECORDS SUMMARY | ~2019-10-16 | XMS | Encounter Summary ---
Demographics + + + | Address | [address] | | | [place] [address] | + + + | Home Phone | | + + + | Preferred Language | Unknown | + + + | Marital Status | | + + + | Rastafari Affiliation | Unknown | + + + | Race | Unknown | + + + | Ethnic Group | Unknown | + + + Author + + + | Author | [facility] | | | and [place] | + + + | Organization | [facility] | | | and [place] | + + + | Address | Unknown | + + + | Phone | Unavailable | + + + Support + + + + + | Name | Relationship | Address | Phone | + + + + + | Chula Roe | ECON | [address] | | | | | [place] | | | | | [address] | | + + + + + Care Team Providers + +------+ + | Care Relay Shop Supervisor Name | Role | Phone | [...] | | | | | | | [place] | | | | | | [...] arthroplasty | | | | [address] | [place] | | | | | [place] | [address] | | | | | [address] | [phone] | | | | | [phone] | | | +--------+---------+ + + + [...] this encounter Discharge Instructions Instructions Juan Jimenez, [facility] - 03/13/2019Formatting of this note might be different fro m the original. Your post op appointment is scheduled for 03/22 at 10:00 am. Please check in at 9: 30 am for X-rays at the [facility]. Discharge Instructions for Hip Replacement Surgery [...] the appointment date and time by calling [phone] extension [phone] When to Seek Medical Attention [...] Swelling, tenderness, or cramps in your leg [facility] Patient Opioid Handout for Acute or [...] your pharmacist when filling your pain prescription. mAan chan go to the same pharmacy when [...] struggling with addiction call our office and [facility] ne at [phone]. Secure Storage Prescriptions should be stored out [...] take back program administe red by the [facility]. Other preferred options include medication drop box at a police station if a vailable, LINDA-authorized collection site or pharmacy secure drop-box program if available. ? Take Back Program: https://www.Picketion.DieDe Die Development[employer] Visual [employer].gov/drug_disposal/takeback/ National P rescription Drug Take Back Day: January ? To find an authorized local refuse collector supervisor contact the [facility] Office of Diversion Control s Reg istration Call Center at ? Call your local pharmacy for recommendations. ? Search for a drug disposal location near you on the [facility] diversion control division search engine: https://apps.Picketion.DieDe Die Developmentoj.gov/pubdispsearch/spring/main?execution=e1s1 At the time of printing: [facility] in [place], [facility] in [place], [facility] in [place] How to Dispose of Medicines at Home: Taken from the FDA guide How to Dispose of Unused Medicines https://www.fda.gov/ForConsumers/ConsumerUpdates/pgt246347.htm Disposing medicines in household trash: Almost all [...] mg of acetaminophen (Tylenol) per day. Hydrocodone-acetaminophen ([place] ) and Oxycodone-acetaminophen (Percocet) have 325 mg [...] red in back of calf PE or NH: sudden chest pain or trouble breathing Stroke: [...] help t he stool stay soft and qcor-lz-nzas. Remember to drink plenty of fluids and fiber-containin g foods. If you do not have a bowel movement within two days of returning home, add milk of magnesia 30 mL once each night and/or Miralax one capful (17 grams) dissolved in half a cup of water once daily for 3 days. These are available qunc-mit-cdalnbu at any drugstore. If you are still [...] Jr Meza DO - 03/15/2019 12:11 PM [facility] Neuraxial Opioid Follow-Up Pain level: Mild The [...] for duration of SAB narcotics. Juan Braswell, [facility] - 03/15/2019 11:36 AM Devora Roe is [...] + | [facility] | [address] | [place] | [phone] | | [facility] | | [address] | | | - LABORATORY | | [...] | | | POC | | | [facility] | | | | | | MEDICAL [...] + | [facility] | [address] | [place] | [phone] | | [facility] | | [address] | | | - LABORATORY | | [...] [address] | [place] | [phone] | | [facility] | | [address] | | | - LABORATORY | | [...] + | [facility] | [address] | [place] | [phone] | | [facility] | | [address] | | | - LABORATORY | | [...] [address] | [place] | [phone] | | [facility] | | [address] | | | - LABORATORY | | [...] [address] | [place] | [phone] | | [facility] | | [address] | | | - LABORATORY | | [...] [address] | [place] | [phone] | | [facility] | | [address] | | | - LABORATORY | | [...] [address] | [place] | [phone] | | [facility] | | [address] | | | - LABORATORY | | [...] | | | | | NPO, Daytime [id number] Use NIGHT | | | | | | | DOSE for doses scheduled: | | | | | | | HS, 3AM, Nighttime 9904-7165 If | | | | | | [...] Blue and notify anesthesiologist | | | monitoring coordinator., Post-op/Phase II | | + +---+ | [...]
--- OUTSIDE RECORDS SUMMARY | ~2019-10-16 | XMS | Encounter Summary ---
Demographics + + + | Address | [address] | | | [place] [address] | + + + | Home Phone | | + + + | Preferred Language | Unknown | + + + | Marital Status | | + + + | Latter Day Affiliation | Unknown | + + + | Race | Unknown | + + + | Ethnic Group | Unknown | + + + Author + + + | Author | [facility] | | | and [place] | + + + | Organization | [facility] | | | and [place] | + + + | Address | Unknown | + + + | Phone | Unavailable | + + + Support + + + + + | Name | Relationship | Address | Phone | + + + + + | Chula Roe | ECON | [address] | | | | | [place] | | | | | [address] | | + + + + + Care Team Providers + +------+ + | Care Avian Keeper Name | Role | Phone | + [...] | | | | | | | LA TOTAL | | | | | | [...] | 03/14/ | Hospital | [facility] | Eran Smiht MD | Status post total | | 2018 - | Encounter | MED CTR SURGICAL | [address] | hip replacement, | | | | [address] | [place] | right (Primary Dx) | | 03/15/ | | [place] [address] | [address] | | | 2019 | | [phone] | [phone] | | | | | | | [...] this encounter Discharge Instructions Instructions Juan Jimenez, [facility] - 03/13/2019Formatting of this note might be different fro m the original. Your post op appointment is scheduled for 03/22 at 10:00 am. Please check in at 9: 30 am for X-rays at the [facility]. Discharge Instructions for Hip Replacement Surgery You had a hip replacement surgery. This means your natural hip was replaced with an artific ial joint (prosthesis). You may be recovering at home or in a rehabilitation facility. Eithe r way, you must take care of your new hip. Do this by moving and sitting the way you [facility]. Also, be sure to see your doctor for follow-up visits, and return to a ctivity slowly. Because a total hip replacement is major surgery, it will be a few months be fore you can move comfortably. Home Care Take your medications exactly as directed on the separate Medication Reconciliation juan luis t. Typically, you will resume your routine medications [...] scheduled about 10 days from your surgery olni e. You may confirm the appointment date and time by calling [phone] extension [phone] When to Seek Medical Attention Call [phone] right awayif you have any of the following: Chest pain Shortness of breath Otherwise, call your doctor immediately if you have any of the following: Increased hip pain Pain or swelling in your calf or leg Fever gmgqu569.4For shaking chills Excessive swelling, increased drainage or redness around the incision Swelling, tenderness, or cramps in your leg [facility] Patient Opioid Handout for Acute or Perioperative [...] clearly, immediately discontinue the medication and call e prescribing provider to discuss a change in medication, dose and/or frequency. Continue t o monitor for worsening symptoms. If you think you're struggling with addiction call our office and [facility]'s National Helpli ne at 8-857-344-HELP. Secure Storage Prescriptions should be stored out [...] take back program administe red by the LINDA. Other preferred options include medication drop box at a police station if a vailable, LINDA-authorized collection site or pharmacy secure drop-box program if available. ? Take Back Program: https://www.deadiversion.[place].gov/drug_disposal/takeback/ National P rescription Drug Take Back Day: January ? To find an authorized local trash collector truck driver contact the [facility] Office of Diversion Control s [facility] istration Call Center at ? Call your local pharmacy for recommendations. ? Search for a drug disposal location near you on the LINDA diversion control division search engine: https://apps.deadiversion.[place].gov/pubdispsearch/spring/main?execution=e1s1 At the time of printing: Monroe Roberts in [place], Mikala in [place], Joellen nevarez in [place] How to Dispose of Medicines at Home: Taken from the FDA guide How to Dispose of Unused Medicines https://www.fda.gov/ForConsumers/ConsumerUpdates/vnu374747.htm Disposing medicines in household trash: Almost all [...] mg of acetaminophen (Tylenol) per day. Hydrocodone-acetaminophen (Yucaipa ) and Oxycodone-acetaminophen (Percocet) have 325 mg [...] red in back of calf PE or KS: sudden chest pain or trouble breathing Stroke: [...] help t he stool stay soft and tlhc-su-ilsx. Remember to drink plenty of fluids and fiber-containin g foods. If you do not have a bowel movement within two days of returning home, add milk of magnesia 30 mL once each night and/or Miralax one capful (17 grams) dissolved in half a cup of water once daily for 3 days. These are available [id number]-crocxgq at any drugstore. If you are still [...] Jr Meza DO - 03/15/2019 12:11 PM PDTIn[facility] Neuraxial Opioid Follow-Up Pain level: Mild The [...] control for duration of SAB narcotics. Juan Braswell RPH - 03/15/2019 11:36 AM CHARLESEdmar Roe is s/p RTHA and discharged home [...] sensation intact to dorsal and plantar foot. 02/04 EHL and tibialis anterior Data Review Recent [...] + | [facility] | [address] | [place] | [phone] | | [facility] | | [address] | | | - LABORATORY | | [...] [address] | [place] | [phone] | | [facility] | | [address] | | | - LABORATORY | | [...] + + | [facility] | [address] | [place] | [phone] | | [facility] | | [address] | | | - LABORATORY | | [...] + | [facility] | [address] | [place] Mer[place] | [phone] | | [facility] | | [address] | | | - LABORATORY | | [...] | | POC | | | [facility] | | | | | | MEDICAL [...] ST. | [address] | [place], [place] | [phone] | | [facility] | | [address] | | | - LABORATORY | | [...] | | POC | | | [facility] | | | | | | [...] | + + + + + | [facility] | [address] | [place] | [phone] | | [facility] | | [address] | | | - LABORATORY | | [...] (H) | 70 - 109 mg/dL | [facility] | | | POC | | | [facility] | | | | | | [...] [address] | [place] | [phone] | | [facility] | | [address] | | | - LABORATORY | | [...] | | | | | g/dL | [facility] | | | | | | [...] [address] | [place] | [phone] | | [facility] | | [address] | | | - LABORATORY | | [...] + | Primary osteoarthritis of right hip - Primary Primary localized osteoarthrosis, | | pelvic region and thigh | + + | Status post total hip replacement, right | + + | Diabetes mellitus type II, ORAL Control Type II or unspecified type diabetes mellitus | | without mention of complication, not stated as uncontrolled | + + | Hypertension Unspecified essential hypertension | + + | Gout Gout, unspecified | + + | Right bundle branch block (RBBB) | + + documented in this encounter [...] | | + +--------+ + +------+------+ | acetaminophen (TYLENOL) tablet | Given | 03/14/20 | 1,000 mg | | | | 1,000 mg 1,000 mg, Oral, ONCE, | | 19 1:07 | | | | | 03/14/19 at 1315, For 1 dose, | | PM PDT | | | | | Pre-op | | | | | | + +--------+ + +------+------+ +---+---+ | | | +---+---+ + +-------+ +--------+---+---+ | acetaminophen (TYLENOL) tablet | Given | 03/15/20 | 650 mg | | | | 650 mg 650 mg, Oral, EVERY 6 | | 19 11:16 | | | | | HOURS (4 times per day), First | | AM PDT | | | | | dose on Tue03/14/19 at 1800, | | | | | | | Post-op/Phase II | | | | | | + +-------+ +--------+---+---+ +-------+ +--------+---+---+ | Given | 03/15/20 | [...] +-------+---+---+ +---+---+ | | | +---+---+ + +---------+ +-----+ +---+ | ceFAZolin (ANCEF, KEFZOL) 100 | New Bag | 03/15/20 | 2 g | 40 mL/hr | | | mg/mL IV syringe 2 g 2 g, | | 19 6:37 | | | | | Intravenous, Administer over 30 | | AM PDT | | | | | Minutes, EVERY 8 HOURS INTERVAL, | | | | | | | First dose on Tue03/14/19 at | | | | | | | 2300, For 2 doses, Start 8 hours | | | | | | | after previous dose. Last dose to | | | | | | | be given within 24 hours of | | | | | | | surgery end time, Post-op/Phase | | | | | | | II, Indications: Surgical | | | | | | | Prophylaxis | | | | | | + +---------+ +-----+ +---+ +---------+ +-----+ +---+ | New Bag | 03/14/20 | 2 g | 40 mL/hr | | | | 19 11:04 | | | | | | PM PDT | | | | +---------+ +-----+ +---+ +---+---+ | | | +---+---+ + +-------+ +--------+---+---+ | celecoxib (CELEBREX) capsule | Given | 03/14/20 | 200 mg | | | | 200 mg 200 mg, Oral, 2 TIMES | | 19 1:07 | | | | | DAILY, First dose on Tue03/14/19 | | PM PDT | | | | | at 1315, Doses > 200 mg should be | | | | | | | given with meals., Pre-op | | | | | | [...] HOURS PRN, Itching, | | | Starting Tue03/14/19 at 1727, | | | Oral route is preferred., | | | Post-op/Phase II | | + +---+ | | | + +---+ | diphenhydrAMINE (BENADRYL) | | | injection 12.5 mg 12.5 mg, | | | Intravenous, EVERY 4 HOURS PRN, | | | Itching, Starting Tue03/14/19 at | | | 1727, Oral route is preferred., | | | Post-op/Phase II | | + +---+ | | | + +---+ | diphenhydrAMINE (BENADRYL) | | | tablet 25 mg 25 mg, Oral, EVERY | | | 4 HOURS PRN, Itching, Starting | | | Tue03/14/19 at 1727, Oral route | | | [...] | 03/15/20 | 3 Units | | Arm-Righ | | KWIKPEN) injection (pen) 0-6 | [...] | | | | | NPO, Daytime 1424-7400 Use NIGHT | | | | | | | DOSE for doses scheduled: | | | | | | | HS, 3AM, Nighttime 6164-6281 If | | | | | | [...] PDT | | | | | Starting Tue03/14/19 at 1745, 2 | | | | [...] HOURS | | | PRN, Pain, Starting Tue03/14/19 | | | at 1727, For 24 [...] Blue and notify anesthesiologist | | | container maker., Post-op/Phase II | | + +---+ | [...] | | | HOURS PRN, Pain, Starting Tue | | | 03/14/19 at 1727, For 24 hours, If | | | ineffective or not tolerated, | | | contact prescriber, | | | Anesthesiology approved? Yes, | | | Post-op/Phase II | | + +---+ | | | + +---+ + +-------+ +-------+---+---+ | pregabalin (LYRICA) capsule 75 | Given | 03/14/20 | 75 mg | | | | mg 75 mg, Oral, 2 TIMES DAILY, | | 19 1:07 | | | | | First dose on Tue03/14/19 at | | PM PDT | | | | | 1315, Pre-op | | | | | | + +-------+ +-------+---+---+ +---+---+ | | | +---+---+ + +-------+ +-------+---+---+ | pregabalin (LYRICA) capsule [...]
--- OUTSIDE RECORDS SUMMARY | ~2019-10-16 | XMS | Encounter Summary ---
Demographics + + + | Address | [address] | | | [place] [address] | + + + | Home Phone | | + + + | Preferred Language | Unknown | + + + | Marital Status | | + + + | Protestant Affiliation | Unknown | + + + | Race | Unknown | + + + | Ethnic Group | Unknown | + + + Author + + + | Author | [facility] | | | and [place] | + + + | Organization | [facility] | | | and [place] | + + + | Address | Unknown | + + + | Phone | Unavailable | + + + Support + + + + + | Name | Relationship | Address | Phone | + + + + + | Chula Roe | ECON | [address] | | | | | [place] | | | | | [address] | | + + + + + Care Team Providers + +------+ + | Care Senior Marketing Manager Name | Role | Phone | [...] Rosa [place]MAN | | | | | [phone] | [place] [address] | | +--------+ + + + + [...]
--- OUTSIDE RECORDS SUMMARY | ~2019-10-16 | XMS | Encounter Summary ---
Demographics + + + | Address | [address] | | | [place] [address] | + + + | Home Phone | | + + + | Preferred Language | Unknown | + + + | Marital Status | | + + + | Rastafari Affiliation | Unknown | + + + | Race | White | + + + | Ethnic Group | Other Race | + + + Author + + + | Author | [facility] | + + + | Organization | [facility] | + + + | Address | Unknown | + + + | Phone | Unavailable | + + + Care Team Providers + +------+ + | Care Quality Assurance Advisor Name | Role | Phone | + [...] | | | | | | [place] [address] | | | +--------+ + + + [...]
--- OUTSIDE RECORDS SUMMARY | ~2019-10-16 | XMS | Clinical Summary ---
Demographics + + + | Address | [address] | | | [place] [address] | + + + | Home Phone | | + + + | Preferred Language | Unknown | + + + | Marital Status | | + + + | Taoist Affiliation | Unknown | + + + | Race | White | + + + | Ethnic Group | Other Race | + + + Author + + + | Author | [facility] | + + + | Organization | [facility] | + + + | Address | Unknown | + + + | Phone | Unavailable | + + + Care Team Providers + +------+ + | Care Director Fraud Name | Role | Phone | + +------+ + PCP | Unavailable | + +------+ + Source Comments JUAN C is fully live on both [facility] and [facility] InPatient.[facility] Allergies Not on File Medications Not on [...] Person | Self | [birth year] | [address] | | | al/Fam | | 1950 | [phone] | [address] [place] | | | [place] | | | [address] (Home) | [address] | + +--------+ +--------+ + +"
--- OUTSIDE RECORDS SUMMARY | ~2019-10-16 | XMS | Encounter Summary ---
Demographics + + + | Address | [address] | | | [place] [address] | + + + | Home Phone | | + + + | Preferred Language | Unknown | + + + | Marital Status | | + + + | Mormon Affiliation | Unknown | + + + | Race | Unknown | + + + | Ethnic Group | Unknown | + + + Author + + + | Author | [facility] | | | and [place] | + + + | Organization | [facility] | | | and [place] | + + + | Address | Unknown | + + + | Phone | Unavailable | + + + Support + + + + + | Name | Relationship | Address | Phone | + + + + + | Chula Roe | ECON | [address] | | | | | [place] | | | | | [address] | | + + + + + Care Team Providers + +------+ + | Care Rug Inspector Helper Name | Role | Phone | [...] | [address] | [address] | | | | | block, right | [place] | [place], | | | | | Abnormal | [place], [place] | [place] | | | | | EKG | [address] | [address] | | | | | Procedures | Phone: | Phone: | | | | | [place] Nuclear | [phone] | [phone] | | | | | Stress Test | Fax: | Fax: | | | | | (Vasodilator | [phone] | [phone] | | | | | ) | [...] | [address] | [address] | | | | | block, right | [place] | [place], | | | | | Abnormal | [place], [place] | [place] | | | | | EKG | [address] | [address] | | | | | Procedures | Phone: | Phone: | | | | | [place] Nuclear | [phone] | [phone] | | | | | Stress Test | Fax: | Fax: | | | | | (Vasodilator | [phone] | [phone] | | | | | ) | | | +--------+--------+ + + + + Encounter Details +--------+ + + + + | Date | Type | Department | Care Team | Description | +--------+ + + + + | 02/22/ | Hospital | [facility] | Eran Smith MD | Bundle branch block, | | 2019 | Encounter | MED CTR NUCLEAR | [address] | right; Abnormal EKG | | | | MEDICINE [address] | [place], [place] | | | | | [address] [place], | [address] | | | | | [place] [address] | [phone] | | | | | [phone] | | | | | | | Roll FinisherTammie | | +--------+ + + + + [...] | | | | | doctor, Starting [facility] 02/22/19 at | | AM PDT | [...] | | | | | | | [facility] 02/22/19 at 1000, For 1 dose, | [...] | | | | | | Starting [facility] 02/22/19 at 0942, For | | | | | | | 1 dose, Nuclear Medicine | | | | | | + +-------+ + +---+---+ +---+---+ | | | +---+---+ documented in this encounter"
--- OUTSIDE RECORDS SUMMARY | ~2019-10-16 | XMS | Clinical Summary ---
Demographics + + + | Address | [address] | | | [place] [address] | + + + | Home Phone | | + + + | Preferred Language | Unknown | + + + | Marital Status | | + + + | Oriental Orthodox Affiliation | Unknown | + + + | Race | Unknown | + + + | Ethnic Group | Unknown | + + + Author + + + | Author | [facility] | | | and [place] | + + + | Organization | [facility] | | | and [place] | + + + | Address | Unknown | + + + | Phone | Unavailable | + + + Support + + + + + | Name | Relationship | Address | Phone | + + + + + | Chula Roe | ECON | [address] | | | | | [place] | | | | | [address] | | + + + + + Care Team Providers + +------+ + | Care Quality Engineer Medical Device Name | Role | Phone | + [...] | FOSTER - | | 10/16/ | [id number] | | [id number]: Qty: 1 | c | | ZIMM | | 2028 | 664 / | | on 03/14/2019 by Eran Smith | | | | | | /[id number] | | MD Zaynab at [facility] | | | | | | 01 | | [facility] | | | | | | | + +--------+------+ +--------+--------+--------+ | Imp Hip Lnr Arcmxl 36 F G7 | Generi | | FOSTER - | | 12/06/ | 169268 | | Tracy - [id number]: | c | | ZIMM | | 4 | 741 / | | Qty: 1 on 03/14/2019 by | | | | | | /[id number] | | Eran Smith MD at [facility] | | | | | | 25 | | [facility] | | | | | | | | [facility]ENTER | | | | | | | + +--------+------+ +--------+--------+--------+ | Imp Hip Stem Hi Off Tprlc | Generi | | FOSTER - | | 11/04/ | 51-104 | | 15mm - [id number]: | c | | ZIMM | | 2025 | 150 / | | Qty: 1 on 03/14/2019 by | | | | | | /[id number] | | Eran Smith MD at [facility] | | | | | | 24 | | [facility] | | | | | | | | CENTER | | | | | | | + +--------+------+ +--------+--------+--------+ | Imp Hip Fem Hd Cocr 36mm Neg | Generi | | FOSTER - | | 01/01/ | 11-363 | | 3 - [id number]: Qty: | c | | ZIMM | | 9 | 661 / | | 1 on 03/14/2019 by Luis, | | | | | | /[id number] | | Eran Worthy MD at [facility] | | | | | | 0 | | [facility] | | | | | | | + +--------+------+ +--------+--------+--------+ | Screw Bone Trilogy 6.5x35mm - | Screw | | FOSTER - | | 11/30/ | 00-625 | | [id number]: Qty: 1 | | | ZIMM | | 2029 | 0-065- | | on 03/14/2019 by Eran Smith | | | | | | 35 / | | MD Zaynab at [facility] | | | | | | /[id number] | | [facility] | | | | | | 65 [...] +--------+ +---------+--------+ | MEDICARE | MEDICA | [id number] | | [phone] | | Medica | | | RE | | 015-Pr | 5 | | re | | | PART A | | esent | | | | | | AND B | | | | | | + +--------+ +--------+ +---------+--------+ | AARP | AARP | [id number] | 10/03/19 | [phone] | | Indemn [...] Person | Self | [birth year] | | [address] | | | al/Fam | | 1950 | [phone] | [place] | | | [place] | | | [address] (Home) | [place] [address] | + +--------+ +--------+ + + Advance Directives + + + + + | Type | Date Recorded | Patient | Explanation | | | | [employer] | | + + + + + | Power of | | | | | Orthopedic Coder | | | | + + + [...]
--- OUTSIDE RECORDS SUMMARY | ~2019-10-16 | XMS | Encounter Summary ---
Demographics + + + | Address | [address] | | | [place] [address] | + + + | Home Phone | | + + + | Preferred Language | Unknown | + + + | Marital Status | | + + + | Orthodox Affiliation | Unknown | + + + | Race | Unknown | + + + | Ethnic Group | Unknown | + + + Author + + + | Author | [facility] | | | and [place] | + + + | Organization | [facility] | | | and [place] | + + + | Address | Unknown | + + + | Phone | Unavailable | + + + Support + + + + + | Name | Relationship | Address | Phone | + + + + + | Chula Roe | ECON | [address] | | | | | [place] | | | | | [address] | | + + + + + Care Team Providers + +------+ + | Care Supply Assistant Name | Role | Phone | + [...] | | | | | | | [place] [employer] | | | | | | [...] + + | 03/14/ | Hospital | [facility] | Eran Smith MD | Status post total | | 2018 - | Encounter | [facility] | [address] | hip replacement, | | | | [address] | [place] | right (Primary Dx) | | 03/15/ | | [place] [id number] | [phone] | | | 2019 | | [phone] | [phone] | | | | | | | [...] this encounter Discharge Instructions Instructions Juan Jimenez, [facility] - 03/13/2019Formatting of this note might be different fro m the original. Your post op appointment is scheduled for 03/22 at 10:00 am. Please check in at 9: 30 am for X-rays at the [facility]. Discharge Instructions for Hip Replacement Surgery You had a hip replacement surgery. This means your natural hip was replaced with an artific ial joint (prosthesis). You may be recovering at home or in a rehabilitation facility. Eithe r way, you must take care of your new hip. Do this by moving and sitting the way you were ta [facility] in the hospital. Also, be sure to [...] the appointment date and time by calling [phone] extension [phone] When to Seek Medical Attention Call [phone] right awayif you have any of the following: Chest pain Shortness of breath Otherwise, call your doctor immediately if you have any of the following: Increased hip pain Pain or swelling in your calf or leg Fever [id number] shaking chills Excessive swelling, increased drainage or redness around the incision Swelling, tenderness, or cramps in your leg [facility] Patient Opioid Handout for Acute or [...] struggling with addiction call our office and [facility]'s National Helpli ne at 2-118-267-HELP. Secure Storage Prescriptions should be stored out [...] program if available. ? Take Back Program: https://www.deadiversion.[employer].gov/drug_disposal/takeback/ National P rescription Drug Take Back Day: January ? To find an authorized local debt collector contact the [facility] Office of Diversion Control s [facility] istration Call Center at ? Call your local pharmacy for recommendations. ? Search for a drug disposal location near you on the [employer] diversion control division search engine: https://apps.deadiversion.[employer].gov/pubdispsearch/spring/main?execution=e1s1 At the time of printing: Monroe Roberts in [place], Mikala in [place], Joellen nevarez in [place] How to Dispose of Medicines at Home: Taken from the FDA guide How to Dispose of Unused Medicines https://www.fda.gov/ForConsumers/ConsumerUpdates/aaz927253.htm Disposing medicines in household trash: Almost all [...] mg of acetaminophen (Tylenol) per day. Hydrocodone-acetaminophen ([place] ) and Oxycodone-acetaminophen (Percocet) have 325 mg [...] red in back of calf PE or [place]: sudden chest pain or trouble breathing Stroke: [...] help t he stool stay soft and yevg-hj-vqul. Remember to drink plenty of fluids and fiber-containin g foods. If you do not have a bowel movement within two days of returning home, add milk of magnesia 30 mL once each night and/or Miralax one capful (17 grams) dissolved in half a cup of water once daily for 3 days. These are available [id number]-[id number] at any drugstore. If you are still [...] Jr Meza DO - 03/15/2019 12:11 PM [facility] Neuraxial Opioid Follow-Up Pain level: [...] + | [facility] | [address] | [place] | [phone] | | [facility] | | [address] | | | - LABORATORY | | [...] [address] | [place] | [phone] | | [facility] | | [address] | | | - LABORATORY | | [...] ST. | [address] | [place] | [phone] | | [facility] | | [address] | | | - LABORATORY | | [...] | | | | | | [facility] | | | | | | MEDICAL [...] + | [facility] | [address] | [place] | [phone] | | [facility] | | [address] | | | - LABORATORY | | [...] | | POC | | | [facility] | | | | | [...] ST. | [address] | [place], [place] | [phone] | | [facility] | | [address] | | | - LABORATORY | | [...] [address] | [place] | [phone] | | [facility] | | [address] | | | - LABORATORY | | [...] [address] | [place] | [phone] | | [facility] | | [address] | | | - LABORATORY | | [...] | | | | | g/dL | [facility] | | | | | [...] [address] | [place] | [phone] | | [facility] | | [address] | | | - LABORATORY | | [...] | | | | | NPO, Daytime [id number] Use NIGHT | | | | | | | DOSE for doses scheduled: | | | | | | | HS, 3AM, Nighttime [id number] If | | | | | | [...] Blue and notify anesthesiologist | | | oncology nurse., Post-op/Phase II | | + +---+ | [...]
[~2019-10-16 23:29] MED LIST: ALLOPURINOL300 MG PO; ATENOLOL50 MG PO; BACTRIM DS TAB1 EACH PO; KEFLEX500 MG PO; METFORMIN HCL1000 MG PO; VIAGRA50 MG PO
[2019-10-16] MEDS ORDERED: AMARYL1 MG PO (23:40)
[2019-10-16] MEDS ORDERED: JANUVIA25 MG PO (23:41)
--- NOTE | 2019-10-17 19:28 | EKG ---
[facility] [address] [facility] [place] [address] Signed Sinus rhythm with 1st degree AV block Right bundle branch block Inferior infarct , age undetermined Abnormal ECG No previous ECGs available Confirmed by SEDRICK GRAY MD ([id number]) on 10/17/2019 7:28:04 PM Electronically Signed By: SEDRICK GRAY MD 10/17/19 1928 PATIENT NAME: GALE DUMONT DONNELL Electrocardiogram DATE OF : 50 PHYSICIAN: SEDRICK GRAY MD REPORT #: [id number] REPORT IS CONFIDENTIAL AND NOT TO BE RELEASED WITHOUT AUTHORIZATION
== END 2019-10-17 04:42 | disposition short-term general hospital (02) ==
LOC: ED 23:29
DX: I21.4 Non-ST elevation (NSTEMI) myocardial infarction (principal); E11.9 Type 2 diabetes mellitus without complications; I10 Essential (primary) hypertension; Z79.899 Other long term (current) drug therapy; Z79.84 Long term (current) use of oral hypoglycemic drugs
CPT/HCPCS: 71045; 80053; 84484; 85025; 85610; 85730; 93005; 93010; 96365; 96375; 96376; 99285-25; J1644; J2270; J2405

== ENCOUNTER 2020-08-26 15:38 | Emergency (ER) | payer MEDICARE ==
[~2020-08-26] VITALS: Ht 172.7 cm; Wt 95.3 kg
[~2020-08-26 15:38] MED LIST changes: +AMARYL1 MG PO; +JANUVIA25 MG PO
[2020-08-26] MEDS ORDERED: FINASTERIDE5 MG PO (15:57)
[2020-08-26] MEDS ORDERED: LISINOPRIL20 MG PO (15:57)
[2020-08-26] MEDS ORDERED: PRASUGREL HCL10 MG PO (15:57)
== END 2020-08-26 16:50 | disposition home or self-care (01) ==
LOC: ED 15:38
DX: R50.9 Fever, unspecified (principal); Z20.828 Contact with and (suspected) exposure to other viral communicable diseases; E11.9 Type 2 diabetes mellitus without complications; I10 Essential (primary) hypertension; Z79.899 Other long term (current) drug therapy; Z79.84 Long term (current) use of oral hypoglycemic drugs
CPT/HCPCS: 99283